=== PATIENT | male | born 1945 | race Caucasian/White ===

== ENCOUNTER 2016-04-16 07:35 | Inpatient (IN) | payer BC, OTHER ==
[2016-04-01 15:36] VITALS: BMI 37.0
[2016-04-16] VITALS (9 sets, daily range): BP systolic 92–138; BP diastolic 55–88; PULSE 104–111; TEMP 36.3–37.1; O2SAT 92–95; Ht 193 cm; Wt 141.5 kg
[~2016-04-16] VITALS: Ht 193 cm; Wt 141.5 kg
[~2016-04-16 07:35] MED LIST: ALLO100T PO; ASPI81TA28 PO; B-COTAB18 PO; CANA1TAB3 PO; CHOL1000 PO; CITA20TA4 PO; CLINDAMYCIN 600 MG/54 ML D5W IV SCH; CeleBREX 200 MG CAP PO SCH; GABA-113 PO; IBUP-103 PO; INDO-22 PO; INSU70IN2 SC; LSN/2025 PO; METF1TAB53 PO; MULT-190 PO; NORT25CA PO; OMEG10007 PO; PREGABALIN 75 MG CAP PO SCH; SIMV20TA2 PO
[2016-04-16] MEDS ORDERED: MIDAZOLAM HCL 1 MG/ML 2ML VIAL ONE (08:13)
[2016-04-16] MEDS ORDERED: FENTANYL CITRATE INJ 50 MCG/1 ML 2 ML VIAL ONE ×2 (08:13→08:14)
[2016-04-16] MEDS ORDERED: LIDOCAINE HCL 2% 2 ML VIAL (20MG/ML) ONE ×2 (08:13→08:52)
[2016-04-16] MEDS ORDERED: PROPOFOL IV EMULSION 10 MG/ML 20 ML VIAL IV ONE (08:13)
[2016-04-16] MEDS ORDERED: ONDANSETRON INJ 2 MG/ML 2 ML VIAL IV PRN ×2 (08:30→12:00)
[2016-04-16] MEDS ORDERED: EpHEDrine SULFATE INJ 50 MG/ML AMP IV PRN (08:30)
[2016-04-16] MEDS ORDERED: ATROPINE SULFATE 0.1 MG/ML 5ML SYR IV PRN (08:30)
[2016-04-16] MEDS ORDERED: MoRPHine SULFATE 10 MG/ML CARP/VIAL IV PRN (08:30)
[2016-04-16] MEDS: LACTATED RINGER'S 1000ML 1,000 ML IV SCH ×3 (08:55→13:05)
--- NOTE | 2016-04-16 09:02 | History and Physical ---
History & Physical Date Apr 16, 2016. Chief Complaint LBP, kye leg pain, L foot drop History of Present Illness The patient is a 70 year old male with complaints of above that have been long standing and progressive. He has failed to see improvement with PT or ESIs and weakness of ankle has developed. His MRI shows stenosis greatest at L3-4 and 4- 5, moderate at L5-S1 with a degen scoliosis, and multilevel DDD/facet djd. no incontinence Past Medical/Surgical History PVD diabetes type 2 gout hi chol hypothyroid T&A stress echo wnl 2013 stress test 2017 without ischemia Additional History Hepatic Disease: No Endocrine Disorder: No Kidney Disease: No Hypertension: No Heart Disease: No Bleeding Tendencies: No Infectious Diseases: No Allergies Coded Allergies: Penicillins (Verified Allergy, Unknown, "PATIENT PASSED OUT" OCCURED CHILD, 04/16/16) Home Medications Scheduled Allopurinol (Zyloprim), 100 MG PO QPM Aspirin (Aspirin Ec), 81 MG PO QAM B-Complex Vitamins (Vitamin B Complex), 1 TAB PO QPM Canagliflozin (Invokana), 300 MG PO QAM Cholecalciferol (Vitamin D3), 0.5 TAB PO QAM Citalopram Hydrobromide (Citalopram Hydrobromide), 1 TAB PO QAM Fish Oil ([place]-3), 1 CAP PO QAM Gabapentin (Neurontin), 300 MG PO QAM Gabapentin (Neurontin), 600 MG PO HS Hctz/Lisinopril (Lisinopril/Hctz 20/25 Mg), 1 TAB PO QPM Insulin Isophan/Regular (Novolin 70/30), 56 UNITS SC QAM Insulin Isophan/Regular (Novolin 70/30), 60 UNITS SC QPM Metformin Hcl (Glucophage Ext Rel), 1,000 MG PO BID Nortriptyline (Pamelor), 25 MG PO HS Ocuvite Preservision (Ocuvite Preservision), 1 TAB PO BID Simvastatin (Zocor), 20 MG PO QPM Scheduled PRN Ibuprofen Tab (Advil), 400 MG PO Q6 PRN for Pain Indomethacin (Indocin), 25 MG PO UD PRN for PRN Physical Examination Skin: warm/dry Eyes: normal inspection ENT: normal ENT inspection Head: normocephalic, atraumatic Neck: supple, trachea midline Respiratory/Chest: lungs clear, no respiratory distress Cardiovascular: regular rate, rhythm Back: normal inspection Extremities: normal inspection, normal range of motion Neurologic/Psych: normal reflexes, oriented x 3 Addiitonal Comments: L ankle foot drop Diagnosis spinal stenosis/DDD Plan of Treatment L2-S1 decompression/fusion
[2016-04-16] MEDS ORDERED: OXYC-57 PO (09:24)
--- NOTE | 2016-04-16 09:26 | Discharge Instructions ---
Discharge Instructions Admission Reason for Admission: Lumbar Spinal Stenosis Discharge Discharge Diagnosis / Problem: Lumbar Stenosis Discharge Goals Goal(s): Decrease discomfort, Improve function, Increase independence Activity Recommendations Activity Limitations: as noted below Lifting Limitations: no more than 5 pounds Exercise/Sports Limitations: until after follow-up appointment May Resume Sexual Activity: after follow-up appointment Shower/Bathe: may shower/bathe in 3 days . Current Hospital Diet ACTIVITY RECOMMENDATIONS: SELF CARE INSTRUCTIONS AFTER THORACIC/LUMBAR FUSIONS 1. You may walk to your tolerance. It is good exercise for your legs and back. Expect some back and intermittent leg aches and pains. 2. You may perform "counter-top" level activities (make a sandwich, boogie with a project, etc.). 3. No bending or lifting of more than 10 pounds or back twisting of any nature (roll like a log when turning in bed). 4. You may ride in a car for 20-30 minutes at a time. No driving until after your first visit with your doctor. 5. Frequent changes of position and restricting sitting to 30 minutes at a time will help limit the amount of back spasms and stiffness you may experience. 6. You may discontinue the use of ambulatory aids (cane, crutches, etc.) once your strength and confidence allow. 7. You may product support engineer the shower and let water strike your incision when you arrive home at least once daily. Do not take a tub bath, sit in a hot tub or go into a swimming pool until after your first recheck in the office. SPECIAL CARE INSTRUCTIONS: VERY IMPORTANT TO READ AND REVIEW A. Your surgical incision has been closed with a cosmetic suture under the skin that will dissolve in about 6 weeks. In 14 days, you can use a pair of clean scissors and cut the suture that is left outside of the skin at the ends of your incision. 1. The small skin tapes can be removed 7 days after surgery if they have not fallen off by that point. 2. You may keep the wound open to air as much as possible to promote healing after post-op day number 5 unless told otherwise by your doctor. 3. If you think the wound looks like it is becoming infected (redness or worsening drainage) and/or you are experiencing fever, chill or worsening back pain and muscle spasms, contact the office so that we may evaluate you as soon as possible. B. Complications are uncommon, but please contact us if you have any signs or symptoms of: 1. wound infection (fever higher than 102.5 degrees F, redness, separation of wound, drainage, or increasing pain from the incision) 2. blood clots in legs (pain, swelling, redness and warmth in legs) 3. urinary tract infection (fever higher than 102.5 degrees F, burning upon urination or increased frequency of urination) 4. nerve problems (inability to walk on your toes or heels, numbness, loss of bowel or bladder control) 5. any other symptoms that concern you C. Please call the office at if you have any concerns or questions about your operation or recovery. D. No smoking! Smoking drastically decreases the chance of a solid fusion. E. Do not take any anti-inflammatory medications (Indocin, Advil, Motrin, Aspirin, Naprosyn, etc.) as these may inhibit the chance of a solid fusion. Tylenol is okay to take for pain. MANAGING PAIN AFTER SPINAL SURGERY 1. Narcotic medication is intended for short-term use and will be provided for surgical pain. Surgical pain usually lasts for a period of 4-6 weeks. Narcotic medication includes Percocet, Vicodin, Darvocet, Tylenol #3 or Lortab. 2. Longer-term pain is more appropriately treated with non-narcotic medication such as Tylenol ES. 3. Muscle spasm is not appropriately treated with narcotics. Muscle relaxers such as Soma, Flexeril or Skelaxin can be used along with Tylenol ES. 4. Remember that we all live with some "aches and pains". This is not unusual or uncommon after an injury or as we get older. a. Back pain is expected and may include muscle spasms for 4 to 6 weeks after surgery. The pain should gradually improve. If the pain worsens for no apparent reason, please contact the office. b. Intermittent leg pain may also be experienced and should not be concerned about unless it worsens for no apparent reason. If so, please contact the office. 5. We will provide appropriate medication within the normal guidelines of their prescribed use. We will also be very cautious and aware of potential abuse and extended duration of patients' medication needs. a. Pain medications are for your comfort and to assist with sleep and rest so that the tissue can heal. They are not provided in order to return to normal activity and should not be used through the day. To do so or worsening pain at night can result from ongoing tissue damage and development of tolerance to the prescribed medicine. 6. Please allow 2-3 days to process refills. Prescriptions will not be mailed but must be picked up at the office. FOLLOW UP VISIT: Keep your scheduled follow-up appointment. Any questions, please call the office at . Patient's current hospital diet: Discharge Diet Recommended Diet: Regular Diet Pending Studies Studies pending at discharge: no Medical Emergencies . Who to Call and When: Medical Emergencies: If at any time you feel your situation is an emergency, please call 911 immediately. . Non-Emergent Contact Non-Emergency issues call your: Surgeon Call Non-Emergent contact if: temperature is above 101, your pain is not controlled, your pain is worsening, your pain is unusual for you, your pain is concerning you, wound has increased drainage, wound has increased redness, wound has increased pain, you have any medication questions . "Provider Documentation" section prepared by Darrell Bourgeois. VTE Core Measure Inpt VTE Proph given/why not?: Grace Dykes
[2016-04-16] MEDS ORDERED: PHENYLEPHRINE HCL INJ 10 MG/ML VIAL ONE (10:38)
[2016-04-16] MEDS ORDERED: EpHEDrine SULFATE 50MG/5ML SYR ONE (10:42)
[2016-04-16] MEDS ORDERED: PHENYLEPHRINE 100MCG/ML 5ML SYR ONE ×2 (10:42→12:15)
[2016-04-16] MEDS ORDERED: BUPIVACAINE/EPINEPHRINE 0.5% MPF 1:200,000 30 ML VIAL INJ ONE (10:44)
[2016-04-16] MEDS ORDERED: THROMBIN 5000 UNITS KIT TOP ONE (10:44)
[2016-04-16] MEDS ORDERED: THROMBIN FOR SOLN 20000 UNIT KIT TOP ONE (10:44)
[2016-04-16] MEDS ORDERED: BACITRACIN 50000 UNIT VIAL IR ONE (10:44)
[2016-04-16] MEDS ORDERED: ROCURONIUM BROMIDE 10 MG/ML 5 ML VIAL ONE (11:00)
[2016-04-16] MEDS ORDERED: VASOPRESSIN 20 UNIT/ML VIAL ONE (11:00)
[2016-04-16] MEDS ORDERED: FLOSEAL HEMOSTATIC MATRIX 10ML TOP ONE (11:43)
[2016-04-16] MEDS ORDERED: SODIUM CHLORIDE 0.9% 1000ML 1,000 ML IV SCH (11:55)
--- NOTE | 2016-04-16 11:55 | [facility] Post Operative Brief Note ---
Immediate Operative Summary Operative Date Apr 16, 2016. Pre-Operative Diagnosis Spinal stenosis, degenerative disc disease Post-Operative Diagnosis Same as pre-operative diagnosis Procedure(s) Performed L2-S1 Decompression, Posterior Spinal Fusion, Instrumentation; Infuse; Application of Arteriocyte Surgeon Dr. Petros Todd Continuous Improvement Coach Surgeon(s) Darrell Bourgeois PA-C Estimated Blood Loss 600ml Findings dict Specimens None per surgeon
[2016-04-16] MEDS ORDERED: NALOXONE HCL 0.4 MG/1 ML VIAL/CARP IV PRN ×2 (12:00)
[2016-04-16] MEDS ORDERED: LORAZEPAM 0.5 MG TAB PO PRN (12:00)
[2016-04-16] MEDS ORDERED: PROMETHAZINE HCL INJ 12.5 MG in SODIUM CHLORIDE 0.9% 50ML 50 ML IV PRN (12:00)
[2016-04-16] MEDS ORDERED: FAMOTIDINE 20 MG TAB PO PRN (12:00)
[2016-04-16] MEDS ORDERED: ACETAMINOPHEN IV 100 ML IV PRN (12:00)
[2016-04-16] MEDS ORDERED: MAGNESIUM HYDROXIDE SUSP 30 ML UDC PO PRN (12:00)
[2016-04-16] MEDS ORDERED: BISACODYL 10 MG SUPP PR PRN (12:00)
[2016-04-16] MEDS ORDERED: ALUMINUM/MAGNESIUM SUSP 30 ML UDC PO PRN (12:00)
[2016-04-16] MEDS ORDERED: LORAZEPAM INJ 0.5 MG in SYRINGE 0.75 ML IV PRN (12:00)
[2016-04-16] MEDS ORDERED: METOCLOPRAMIDE HCL INJ 5 MG/ML 2 ML VIAL IV PRN (12:00)
[2016-04-16] MEDS ORDERED: SOD PHOSPHATE/SOD BIPHOSPHATE ENEMA 132 ML BTL PR PRN (12:00)
[2016-04-16] MEDS ORDERED: hydrOXYzine HCL 25 MG TAB PO PRN (12:00)
--- NOTE | 2016-04-16 12:09 | DIAGNOSTIC IMAGING REPORT ---
INTRAOPERATIVE RADIOGRAPHS CLINICAL HISTORY: L2-S1 spinal fusion. Fluoroscopy time: 17 seconds. FINDINGS: 4 spot fluoroscopic views of the lumbar spine are presented. There are changes from laminectomy and posterior fusion seen from L2 to S1. Interpedicular screws are present at all levels. The orthopedic hardware appears intact. IMPRESSION: Intraoperative images from L2 -S1 spinal fusion as above. Electronically signed by: Marcus Chambers M.D. 04/16/2016 12:08 PM Dictated Date/Time: 04/16/2016 12:07 PM
[2016-04-16] MEDS ORDERED: NovoLIN-R INSULIN PER UNIT CHARGE ONE (12:20)
[2016-04-16] MEDS ORDERED: INSULIN HUMAN REGULAR PER UNIT 5 UNITS in SYRINGE 0 ML IV STA (12:32)
[2016-04-16] MEDS: FENTANYL CITRATE INJ 50 MCG/1 ML 2 ML VIAL IV PRN ×4 (13:05→13:20)
[2016-04-16] MEDS ORDERED: HYDROmorphone HCL 0.5MG/ML 50 ML CASSETTE ONE (13:24)
[2016-04-16 13:25] LABS: HEMATOCRIT 37.2 % (42-52)
--- NOTE | 2016-04-16 14:38 | Anesthesiology Progress Note ---
Anesthesia Post Op Note Date & Time Apr 16, 2016 at 14:38 Vital Signs Pain Intensity: 3 Vital Signs Past 12 Hours Date Time Temp Pulse Resp B/P Pulse Ox O2 Delivery O2 Flow Rate FiO2 04/16/16 14:20 36.6 105 18 96/64 92 Nasal Cannula 4 04/16/16 14:10 103 18 92/55 92 Nasal Cannula 4 04/16/16 14:00 103 18 105/60 92 Nasal Cannula 4 04/16/16 13:50 104 18 105/61 94 Nasal Cannula 4 04/16/16 13:40 101 18 101/59 96 Nasal Cannula 4 04/16/16 13:30 103 18 118/59 96 Nasal Cannula 4 04/16/16 13:20 102 18 92/56 93 Nasal Cannula 4 04/16/16 13:10 100 18 111/55 93 Nasal Cannula 4 04/16/16 13:00 101 18 86/56 92 Nasal Cannula 4 04/16/16 12:50 101 18 81/59 92 Nasal Cannula 4 04/16/16 12:40 100 16 89/55 96 Nasal Cannula 4 04/16/16 12:30 105 16 77/45 98 Mask 10 04/16/16 12:20 104 16 101/62 100 Mask 10 04/16/16 12:13 36.8 108 16 81/55 98 Mask 10 04/16/16 08:25 37.1 108 18 100/66 95 Room Air Notes Mental Status: alert / awake / arousable, participated in evaluation Pt Amnestic to Procedure: Yes Nausea / Vomiting: adequately controlled Pain: adequately controlled Airway Patency, RR, SpO2: stable & adequate BP & HR: stable & adequate Hydration State: stable & adequate Anesthetic Complications: no major complications apparent
[2016-04-16] MEDS: HYDROmorphone HCL 0.5MG/ML 50 ML CASSETTE IV PRN ×2 (15:19→22:55)
--- NOTE | 2016-04-16 16:14 | OPERATIVE REPORT ---
DATE OF OPERATION: 04/16/2016 PREOPERATIVE DIAGNOSES: 1. Spinal stenosis. 2. Lumbar facet arthrosis, degenerative disc disease, degenerative scoliosis. POSTOPERATIVE DIAGNOSES: Same. PROCEDURES: 1. L3, L4 and L5 laminectomies with bilateral medial facetectomies and foraminotomies. 2. Segmental pedicle screw instrumentation -- bilateral L2, L3, left L4, bilateral L5 and S1 with K2M [place] pedicle screws. 3. Posterolateral fusion L2-S1 -- bilateral with Infuse BMP on a collagen sponge, tricalcium phosphate, local bone, bone putty bone marrow aspirate, bone graft zoning administrator. 4. Right iliac crest bone marrow aspiration, stem cell concentrations with Arteriocyte system. SURGEON: Dr. Todd. SCREEN TACKER: Darrell Bourgeois PA-C. Please note he participated in all portions of the procedure and was critical for performance of procedure, participated in positioning, prepping, draping, retraction and wound closure. ANESTHESIA: General endotracheal anesthesia. COMPLICATIONS: None. ESTIMATED BLOOD LOSS: Per anesthesia record. DESCRIPTION OF PROCEDURE: After identification of patient and operative level, he was brought to the OR where he underwent induction of general anesthesia. He was then positioned prone on Surinder OR table. All bony prominences were well padded. Care was taken to avoid pressure on the periorbital area. Lumbosacral area was sterilely prepped and draped in usual fashion. Antibiotics were administered. Time-out was performed. Level was confirmed and skin incision was made from spinous process of L1 to the sacrum after infiltration with Marcaine. I exposed the posterior elements out to the transverse process from L2 to the sacral ala, placed Gelpi retractors and confirmed level with fluoroscopy. I marked the operative levels and then did laminectomies with midline decompression of L3, L4 and L5 and removal of ligamentum flavum at the intervening levels. Using an osteotome to remove the medial facets at L3-L4, L4-L5 and L5-S1, I completed decompression with Kerrisons. Wide foraminotomies were necessary at multiple levels due to foraminal stenosis. I palpated the nerve roots were free from L3-S1 bilaterally with a [place] elevator. I then applied FloSeal as necessary for hemostasis, bone wax components. I placed pedicle screws bilaterally at L2, L3, on the left at L4, bilaterally at L5 and S1 with K2M [place] pedicle screws. I checked screw lengths, trajectory and position with fluoroscopy. The right L4 pedicle screw had breached the medial and inferior wall and I removed this so as not to irritate the nerve root. I then lowered the Jaspal frame to restore lordosis, applied rods and end caps final tightening as well as a cross link which final tightened. I aspirated bone marrow from the right iliac crest via separate stab incision with a DNage needle concentration with Arteriocyte system, added to bone graft zoning administrator, mixed with local bone. I then decorticated the transverse process from L2 to the sacral ala bilaterally with a high speed bur as well as the facet joints from L2 to the sacrum bilaterally. I then packed the lateral gutters and facets with bone graft mixture as above bilaterally. I did irrigate prior to bone grafting. I then closed in layered fashion over ADDISON drain. All sponge and needle counts were correct at the end of the case. I attest to the content of the Intraoperative Record and any orders documented therein. Any exceptio ns are noted below.
[2016-04-16] MEDS: SODIUM CHLORIDE 0.9% 1000ML 1,000 ML IV SCH (17:02)
[2016-04-16] MEDS ORDERED: DEXTROSE 50% 50 ML SYR IV PRN (17:15)
[2016-04-16] MEDS ORDERED: GLUCAGON FOR INJ 1 MG VIAL SQ PRN (17:15)
[2016-04-16] MEDS ORDERED: GLUCOSE 40% GEL 15 GM TUBE PO PRN (17:15)
[2016-04-16] MEDS ORDERED: GLUCOSE 10 TABS/TUBE PO PRN (17:15)
[2016-04-16] MEDS: CLINDAMYCIN IV 600 MG in DEXTROSE 5% ADD-VANTAGE 50ML 50 ML IV SCH (17:26)
[2016-04-16] MEDS ORDERED: PHARMACY GLYCEMIC MGMT CONSULT PRN (17:28)
--- NOTE | 2016-04-16 17:33 | Medical Consult ---
Consultation Date of Consultation: Apr 16, 2016. Attending Physician: Petros Todd M.D. Reason for Consultation: Postop Medical Management History of Present Illness Patient seen and examined. 70 year old male with PMHx of DM2, Hypothyroidism, HTN, HLD, Gout, PAD and other problems listed below is seen in consultation for postop medical management. Patient reports he feels uncomfortable and restless from lying in bed. Otherwise he said pain is well controlled with CASE MANAGER SPECIALIST, he denies fevers, chills, URI symptoms, chest pain, SOB, nausea, vomiting, diarrhea , dysuria, calf pain and edema. Last BM this morning. Denies history of VTE. Intraoperatively patient became hypotensive, d/t increased blood loss throughout the procedure, per nursing staff EBL for today is approximately 1L. Patient received IVFs and BPs improved, he was admitted to PCU following procedure for close monitoring. VS are currently stable Past Medical/Surgical History Medical Problems: (1) Depression Status: Chronic (2) DM2 (diabetes mellitus, type 2) Status: Chronic (3) Gout Status: Chronic (4) HLD (hyperlipidemia) Status: Chronic (5) HTN (hypertension) Status: Chronic (6) Hypothyroid Status: Chronic (7) PAD (peripheral artery disease) Status: Chronic Surgical Problems: (1) History of back surgery Status: Chronic Social History Smoking Status: Former Smoker Alcohol Use: none Housing Status: lives with family Occupation Status: retired Allergies Coded Allergies: Penicillins (Verified Allergy, Unknown, "PATIENT PASSED OUT" OCCURED CHILD, 04/16/16) Current Inpatient Medications Current Inpatient Medications Medications (Trade) Dose Ordered Sig/Jax Route Start Time Stop Time Status Last Admin Dose Admin Lactated Ringer's 1,000 ml @ 15 mls/hr Q24H IV 04/16/16 06:00 04/17/16 05:59 04/16/16 13:05 15 MLS/HR Clindamycin Phosphate (Cleocin 600mg/ 54ml D5W) 54 ml @ 100 mls/hr PREOP IV 04/16/16 06:00 04/16/16 18:00 04/16/16 09:29 100 MLS/HR Allopurinol (Zyloprim Tab) 100 mg QPM PO 04/16/16 21:00 05/16/16 20:59 Aspirin (Ecotrin Tab) 81 mg QAM PO 04/17/16 09:00 05/17/16 08:59 Citalopram Hydrobromide (celeXA TAB) 20 mg QAM PO 04/17/16 09:00 05/17/16 08:59 Gabapentin (Neurontin Cap) 300 mg QAM PO 04/17/16 09:00 05/17/16 08:59 Gabapentin (Neurontin Cap) 600 mg HS PO 04/16/16 21:00 05/16/16 20:59 HCTZ/Lisinopril (Prinzide 20-25MG Tab) 1 tab QPM PO 04/16/16 21:00 05/16/16 20:59 Nortriptyline HCl 25 mg 25 mg HS PO 04/16/16 21:00 05/16/16 20:59 Clindamycin Phosphate 600 mg/ Dextrose 54 ml @ 100 mls/hr Q8H IV 04/16/16 18:00 04/17/16 02:33 Promethazine HCl/ Sodium Chloride (Phenergan Inj/ Nss 50ml) 50.5 ml @ 202 mls/hr Q6H PRN IV 04/16/16 12:00 05/16/16 11:59 Ondansetron HCl (Zofran Inj) 4 mg Q6H PRN IV 04/16/16 12:00 05/16/16 11:59 Metoclopramide HCl (Reglan Inj) 10 mg Q6H PRN IV 04/16/16 12:00 05/16/16 11:59 Lorazepam 0.5 mg 0.5 mg Q8H PRN PO 04/16/16 12:00 05/16/16 11:59 Lorazepam 0.5 mg/ Syringe 1 ml @ 1 mls/min Q8H PRN IV 04/16/16 12:00 05/16/16 11:59 Sodium Chloride (Nss 1000ml) 1,000 ml @ 75 mls/hr [id number] IV 04/16/16 11:55 05/16/16 11:54 04/16/16 17:02 75 MLS/HR Polyethylene (Miralax Powder Packet) 17 gm Q6 PO 04/18/16 06:00 05/18/16 05:59 Bisacodyl (Dulcolax Supp) 10 mg DAILY PRN [place] 04/16/16 12:00 05/16/16 11:59 Magnesium Hydroxide (Milk Of Magnesia Susp) 30 ml DAILY PRN PO 04/16/16 12:00 05/16/16 11:59 Hydromorphone HCl (Dilaudid Inj) 0.5 mg Q3H PRN IV 04/17/16 06:00 05/01/16 05:59 Oxycodone HCl 5-10mg prn moderate to sev... Q4H PRN PO 04/17/16 06:00 05/01/16 05:59 Acetaminophen (Ofirmev Iv) 100 ml @ 400 mls/hr Q8H PRN IV 04/16/16 12:00 05/16/16 11:59 Naloxone HCl (Narcan Inj) 0.1 mg Q5M PRN IV 04/16/16 12:00 05/16/16 11:59 Senna/Docusate Sodium (Senokot S Tab) 2 tab HS PO 04/16/16 21:00 05/16/16 20:59 Sodium Biphosphate/ Sodium Phosphate (Fleet Enema) 132 ml ONE PRN [place] 04/16/16 12:00 05/16/16 11:59 Hydroxyzine HCl (Vistaril Tab) 25 mg Q8H PRN PO 04/16/16 12:00 05/16/16 11:59 Al Hydroxide/Mg Hydroxide (Maalox Susp) 30 ml Q6H PRN PO 04/16/16 12:00 05/16/16 11:59 Famotidine (Pepcid Tab) 20 mg Q12 PRN PO 04/16/16 12:00 05/16/16 11:59 Miscellaneous Information (Discontinue CASE MANAGER SPECIALIST) 1 ea ONE ONCE N/A 04/17/16 06:00 04/17/16 06:01 Naloxone HCl (Narcan Inj) 0.1 mg Q5M PRN IV 04/16/16 12:00 04/17/16 06:00 Hydromorphone HCl 25 mg 25 mg PRN PRN IV 04/16/16 12:00 04/17/16 06:00 04/16/16 15:19 25 MG Sodium Chloride (Nss 1000ml) 1,000 ml @ 15 mls/hr Q24H IV 04/16/16 11:55 04/17/16 06:00 Hydromorphone HCl (Dilaudid Inj) 1 mg Q3H PRN IV 04/17/16 06:00 05/01/16 05:59 Review of Systems See above for pertinent positives & negatives. A total of 10 systems reviewed and were otherwise negative. Physical Exam Date Time Temp Pulse Resp B/P Pulse Ox O2 Delivery O2 Flow Rate FiO2 04/16/16 16:58 36.3 106 18 116/72 93 Nasal Cannula 4.0 04/16/16 16:31 36.3 104 18 96/55 94 Nasal Cannula 4.0 04/16/16 16:15 94 Nasal Cannula 4.0 04/16/16 16:10 36.5 108 16 138/88 94 Nasal Cannula 4.0 04/16/16 15:40 36.6 108 18 126/65 96 Nasal Cannula 4 04/16/16 15:30 36.6 102 18 115/58 96 Nasal Cannula 4 04/16/16 15:20 36.6 102 18 115/58 94 Nasal Cannula 4 04/16/16 15:10 36.6 102 18 101/88 94 Nasal Cannula 4 04/16/16 15:00 36.6 102 18 103/60 92 Nasal Cannula 4 04/16/16 14:50 36.6 103 18 102/65 92 Nasal Cannula 4 04/16/16 14:40 36.6 102 18 102/59 95 Nasal Cannula 4 04/16/16 14:30 36.6 102 18 103/54 96 Nasal Cannula 4 04/16/16 14:20 36.6 105 18 96/64 92 Nasal Cannula 4 04/16/16 14:10 103 18 92/55 92 Nasal Cannula 4 04/16/16 14:00 103 18 105/60 92 Nasal Cannula 4 04/16/16 13:50 104 18 105/61 94 Nasal Cannula 4 04/16/16 13:40 101 18 101/59 96 Nasal Cannula 4 04/16/16 13:30 103 18 118/59 96 Nasal Cannula 4 04/16/16 13:20 102 18 92/56 93 Nasal Cannula 4 04/16/16 13:10 100 18 111/55 93 Nasal Cannula 4 04/16/16 13:00 101 18 86/56 92 Nasal Cannula 4 04/16/16 12:50 101 18 81/59 92 Nasal Cannula 4 1/24/17 12:40 100 16 89/55 96 Nasal Cannula 4 04/16/16 12:30 105 16 77/45 98 Mask 10 04/16/16 12:20 104 16 101/62 100 Mask 10 04/16/16 12:13 36.8 108 16 81/55 98 Mask 10 04/16/16 08:25 37.1 108 18 100/66 95 Room Air General Appearance: + pertinent finding (WD/WN 70 year old male lying in bed in NAD with family at bedside ) Head: normocephalic, atraumatic Eyes: PERRL, EOMI, sclerae normal ENT: hearing grossly normal, pharynx normal Neck: supple, no JVD Respiratory/Chest: chest non-tender, lungs clear, normal breath sounds, no respiratory distress, no accessory muscle use Cardiovascular: regular rate, rhythm, no edema, no gallop, no JVD, no murmur, normal peripheral pulses Abdomen/GI: normal bowel sounds, non tender, soft Genitourinary - Male: + pertinent finding (reyes cath with yellow urine ) Neurologic/Psych: alert, oriented x 3, + pertinent finding (no focal deficits noted on gross exam ) Skin: normal color, warm/dry, no rash Lymphatic: no adenopathy Laboratory Results Last 24 Hours Test 04/16/16 08:16 04/16/16 08:29 04/16/16 12:15 04/16/16 13:17 Bedside Glucose 208 mg/dl 263 mg/dl Hemoglobin 12.7 g/dL Hematocrit 37.2 % Test 04/16/16 13:41 04/16/16 16:11 Bedside Glucose 247 mg/dl 227 mg/dl Assessment & Plan L2-S1 DECOMPRESSION/FUSION -POD#[address] Mera -Management as per ortho to include- pain control, bowel regimen, DVT prophylaxis, PT/OT, incentive spirometry, wound care -EBL 1L -BPs running low likely secondary to acute blood loss, repeat H&H 12.7 -Gentle IVF hydration -follow H&H -CBC, PRP, Mg daily INTRAOPERATIVE ACCIDENTAL NEEDLE STICK -Patient made aware by this fiction writer, all questions answered and consent signed -consent signed and on chart -Patient requested that result be given to him directly from the [facility] and not from his PCP - supervising nurse made aware HTN -running low intraoperatively, improved now -monitor in tele -hold Lisinopril/HCTZ -gentle IVF hydration DM2 -A1c pending -Hold po diabetic agents -SSI coverage -BSG AC HS -Consistent carbohydrate diet -pharmacy consulted for glycemic control HYPOTHYROIDISM -per record, not on hormone replacement -check TSH PAD -resume aspirin when okay with ortho GOUT -continue Allopurinol DEPRESSION -continue Celexa DVT PROPHYLAXIS: per ortho CODE STATUS: FULL CODE DISPO:per ortho Patient seen in collaboration with Dr. Clements, and will be followed daily with Dr. Corbin Thank you for this consultation. We will follow the patient with you during their hospital stay. You can reach a member of the [facility] Hospitalist Team 14/10 via pager @ . Attending Addendum Pt was seen and examined. Agree with Sravanthi's PA exam, assessment and plan. 70 year old male with PMHx of DM2, Hypothyroidism, HTN, HLD, Gout, PAD, s/p L2-S1 decompression and fusion. [facility] hospitalist was consulted for postop medical management. Pt said that he feels ok. Denies any chest pain, palpitation , dizziness and SOB. General- obese, no acute distress Head- atraumatic Eyes- PERRL, EOMI ENT- oropharynx clear Neck- supple, no JVD Lungs- clear to auscultation and percussion Heart- regular rhythm A/p L2-S1 DECOMPRESSION/FUSION -POD#[address] Mera -Continue pain management as per ortho -Monitor H/H -PT/OT - Incentive spirometry HTN -monitor in tele -hold Lisinopril/HCTZ, will resume when BP improved -gentle IVF hydration Please refer to Sravanthi's PA documentation for others problems Thank you for the consult Orin Clements MD
--- NOTE | 2016-04-16 17:44 | Pharmacy Progress Note ---
Glycemic Control Intl Consult Date of Service Apr 16, 2016. Scope Glycemic Pharmacist consulted by Sravanthi House on 04/16/16 for glycemic control and to write orders per [facility] inpatient glycemic control protocol Objective Weight (Kilograms): 138.000 Accuchecks BSG (last 24hrs): Test 04/16/16 08:16 04/16/16 12:15 04/16/16 13:41 04/16/16 16:11 Bedside Glucose 208 mg/dl (70-99) 263 mg/dl (70-99) 247 mg/dl (70-99) 227 mg/dl (70-99) Recent Pertinent Medications Outpatient Anti-diabetic Regimen: * Invokana 300mg PO daily * Glucophage 1000mg PO BID * Novolin Mix 70/30 * 56 units SQ in the morning * 60 units SQ in the evening * A1c = unknown at time of consult The patient is currently receiving: * Basal insulin: none at time of consult * Correctional Insulin: NovoLog Correction per scale AC+HS Goal Range: Low 100 mg/dL - High 140 mg/dL Correction Factor: 30 mg/dL/unit * Prandial insulin: Per carb ratio of 1 unit per 10 grams CHO consumed * Oral Agents: none at time of consult Risk Factors for Insulin Resistance: * Infection: clindamycin perioperatively * IVF: NSS * Recent Surgery: POD #0 * Diet: T2DM Assessment & Plan ASSESSMENT: 04/16/16 * Mr. Blanton is a 70 y/o diabetic who uses basal and prandial insulin (as a mixed Novolin product) plus oral medications to manage his diabetes as an outpatient. * Last doses given 1-2 days prior to surgery - may help explain hyperglycemia perioperatively * 5 units of regular insulin IV given today around noontime * BSGs remain elevated above 200mg/dL * Will transition mixed insulin to Lantus/NovoLog for ease of titration * NovoLog parameters will be based off of both home doses as well as the patient 's weight * A1c is n/a at time of consult * on order for 1/25 AM PLAN FOR INPATIENT GLYCEMIC CONTROL: CHANGES IN BOLD * Begin Lantus 20 units SQ BID * half dose if BSG is less than 100mg/dL * Continue NovoLog AC and HS * Correction factor 18mg/dL/unit * Carb ratio: 1unit per 6g of CHO consumed * Goal range: 100-140mg/dL - keep BSGs lower to decrease risk of infection postoperatively * A1c - on order with AM labs * added to discharge instructions * Please note that the plan above was derived based on current level of insulin resistance and hospital stress. These recommendations are appropriate for inpatient admission only. Plan of care upon discharge will need to be reassessed to avoid potential outpatient hypo/hyperglycemia. Thank you.
[2016-04-16] MEDS: INSULIN ASPART 100 UNITS/ML 3 ML PEN SC SCH ×2 (18:45→21:20)
[2016-04-16] MEDS ORDERED: NURSING VERBAL MED ORDER ONE (19:30)
[2016-04-16] MEDS ORDERED: COUGH DROP (SUGAR FREE) LOZ 24 LOZ/1 BOX PO PRN (19:45)
[2016-04-16] MEDS ORDERED: LISINOPRIL/HCTZ 20/25MG TAB PO SCH (21:00)
[2016-04-16] MEDS: DOCUSATE SODIUM/SENNA 50/8.6MG TAB PO SCH (21:17)
[2016-04-16] MEDS: ALLOPURINOL 100 MG TAB PO SCH (21:17)
[2016-04-16] MEDS: NORTRIPTYLINE HCL 25 MG CAP PO SCH (21:17)
[2016-04-16] MEDS: GABAPENTIN 300 MG CAP PO SCH (21:17)
[2016-04-16] MEDS: INSULIN GLARGINE SOLOSTAR 100 UNITS/ML 3 ML PEN SC SCH (21:20)
[2016-04-17] VITALS (12 sets, daily range): BP systolic 108–143; BP diastolic 53–79; PULSE 110–119; TEMP 36.3–37.2; O2SAT 89–97
[2016-04-17] MEDS: SODIUM CHLORIDE 0.9% 1000ML 1,000 ML IV SCH (00:41)
[2016-04-17] MEDS: INSULIN ASPART 100 UNITS/ML 3 ML PEN SC SCH ×7 (00:42→22:13)
[2016-04-17] MEDS: CLINDAMYCIN IV 600 MG in DEXTROSE 5% ADD-VANTAGE 50ML 50 ML IV SCH (02:00)
[2016-04-17] MEDS ORDERED: HYDROmorphone INJ 1 MG/ML SYR IV PRN (06:00)
[2016-04-17] MEDS ORDERED: DC PCA ONE (06:00)
[2016-04-17 06:17] LABS: BASO % 0.2 %; BASO ABS # 0.03 K/uL (0-0.2); COMPLETE YES; EOS % 0.2 %; HEMATOCRIT 36.2 % (42-52); IG% 0.3 %; LYMPH % 14.1 %; LYMPH ABS # 1.72 K/uL (1.2-3.4); MEAN CELL VOLUME 94.3 fL (80-100); MEAN CORPUSCULAR HEMOGLOBIN 31.3 pg (25-34); MEAN CORPUSCULAR HGB CONC 33.1 g/dl (32-36); MEAN PLATELET VOLUME 9.5 fL (7.4-10.4); MONO % 10.2 %; PLATELET COUNT 186 K/uL (130-400); RED BLOOD COUNT 3.84 M/uL (4.7-6.1); WHITE BLOOD COUNT 12.24 K/uL (4.8-10.8)
[2016-04-17 06:34] LABS: ESTIMATED AVERAGE GLUCOSE 154 mg/dl; HA1C FLAG Normal (Normal)
[2016-04-17 06:46] LABS: BUN/CREATININE RATIO 25.5 (10-20); CALCIUM 8.4 mg/dl (8.5-10.1); CREATININE 0.88 mg/dl (0.60-1.40); POTASSIUM 4.1 mmol/L (3.5-5.1)
[2016-04-17 06:57] LABS: THYROID STIMULATING HORMONE 0.931 uIu/ml (0.300-4.500)
[2016-04-17] MEDS: ASPIRIN 81 MG ECTAB PO SCH (07:50)
[2016-04-17] MEDS: GABAPENTIN 300 MG CAP PO SCH ×2 (07:50→22:20)
[2016-04-17] MEDS: CITALOPRAM 20 MG TAB PO SCH (07:50)
[2016-04-17] MEDS: INSULIN GLARGINE SOLOSTAR 100 UNITS/ML 3 ML PEN SC SCH ×2 (07:53→22:13)
--- NOTE | 2016-04-17 07:57 | Clinical Documentation Query ---
GRACE Rosado : CLINICAL DOCUMENTATION QUERY Patient is a 70 year old male who underwent lumbar decompression and lumbosacral posterior fusion on 04/16. Preoperative diagnoses included "degenerative scoliosis". If appropriate, please consider explicit documentation outlining how the scoliosis was corrected and/or made the procedure more technically difficult. This directly impacts DRG assignment and can only be made clearer through definitive documentation. Thank you. In your clinical opinion is this patient being managed for: ( ) L2-S1 posterolateral fusion, correcting and made more technically difficult by scoliosis. ( ) Other explanation of clinical findings (Please Explain) ( ) Unable to determine (Please Define) ( ) Need to Discuss ( ) Not Agree The medical record reflects the following clinical findings, treatment, and risk factors. Clinical Indicators: As above Treatment: As above Risk Factors: n/a Please clarify and document your clinical opinion in the progress notes and discharge summary. Terms such as "probable", "suspected", "likely", "questionable", "possible", or "still to be ruled out" are acceptable. IF IN AGREEMENT, YOU MUST DOCUMENT ABOVE DIAGNOSTIC STATEMENT IN DAILY PROGRESS NOTES AND DISCHARGE SUMMARY. This document is not part of the patient's record. Thank You, Daren Alegre, RN [phone]
--- NOTE | 2016-04-17 10:18 | Anesthesiology Progress Note ---
Anesthesia Post Op Note Date & Time Apr 17, 2016 at 10:18 Vital Signs Pain Intensity: 0.0 Vital Signs Past 12 Hours Date Time Temp Pulse Resp B/P Pulse Ox O2 Delivery O2 Flow Rate FiO2 04/17/16 08:00 Nasal Cannula 2.0 04/17/16 08:00 36.9 117 18 136/79 94 2.0 04/17/16 04:23 Nasal Cannula 2.0 04/17/16 03:51 37.2 116 20 127/73 94 Nasal Cannula 2.0 04/17/16 00:48 Nasal Cannula 2.0 04/16/16 23:51 36.8 108 21 92/58 94 Nasal Cannula 2.0 Notes Mental Status: alert / awake / arousable, participated in evaluation Pt Amnestic to Procedure: Yes Nausea / Vomiting: adequately controlled Pain: adequately controlled Airway Patency, RR, SpO2: stable & adequate BP & HR: stable & adequate Hydration State: stable & adequate Anesthetic Complications: no major complications apparent
--- NOTE | 2016-04-17 10:46 | Orthopedic Progress Note ---
Orthopedic Progress Note Date of Service Apr 17, 2016. Subjective Post OP Day: 1 Reports: feeling well, pain controlled w PO medications, Denies: SOB, calf pain , chest pain, complaints, light headedness, nausea / vomiting, using MEMBERSHIP COUNSELOR Objective calves soft nontender, N/V intact, dressing C/D/I, A&O x3, hemovac drainage Date Time Temp Pulse Resp B/P Pulse Ox O2 Delivery O2 Flow Rate FiO2 04/17/16 08:00 Nasal Cannula 2.0 04/17/16 08:00 36.9 117 18 136/79 94 2.0 04/17/16 04:23 Nasal Cannula 2.0 04/17/16 03:51 37.2 116 20 127/73 94 Nasal Cannula 2.0 04/17/16 00:48 Nasal Cannula 2.0 04/16/16 23:51 36.8 108 21 92/58 94 Nasal Cannula 2.0 04/16/16 20:20 36.7 111 24 109/65 92 Nasal Cannula 2.0 04/16/16 20:00 92 Nasal Cannula 2.0 04/16/16 19:24 109 109/70 04/16/16 18:43 36.6 108 16 114/71 92 Room Air 04/16/16 16:58 36.3 106 18 116/72 93 Nasal Cannula 4.0 04/16/16 16:31 36.3 104 18 96/55 94 Nasal Cannula 4.0 04/16/16 16:15 94 Nasal Cannula 4.0 04/16/16 16:10 36.5 108 16 138/88 94 Nasal Cannula 4.0 04/16/16 15:40 36.6 108 18 126/65 96 Nasal Cannula 4 04/16/16 15:30 36.6 102 18 115/58 96 Nasal Cannula 4 04/16/16 15:20 36.6 102 18 115/58 94 Nasal Cannula 4 04/16/16 15:10 36.6 102 18 101/88 94 Nasal Cannula 4 04/16/16 15:00 36.6 102 18 103/60 92 Nasal Cannula 4 04/16/16 14:50 36.6 103 18 102/65 92 Nasal Cannula 4 04/16/16 14:40 36.6 102 18 102/59 95 Nasal Cannula 4 04/16/16 14:30 36.6 102 18 103/54 96 Nasal Cannula 4 04/16/16 14:20 36.6 105 18 96/64 92 Nasal Cannula 4 04/16/16 14:10 103 18 92/55 92 Nasal Cannula 4 04/16/16 14:00 103 18 105/60 92 Nasal Cannula 4 04/16/16 13:50 104 18 105/61 94 Nasal Cannula 4 04/16/16 13:40 101 18 101/59 96 Nasal Cannula 4 04/16/16 13:30 103 18 118/59 96 Nasal Cannula 4 04/16/16 13:20 102 18 92/56 93 Nasal Cannula 4 04/16/16 13:10 100 18 111/55 93 Nasal Cannula 4 04/16/16 13:00 101 18 86/56 92 Nasal Cannula 4 04/16/16 12:50 101 18 81/59 92 Nasal Cannula 4 04/16/16 12:40 100 16 89/55 96 Nasal Cannula 4 04/16/16 12:30 105 16 77/45 98 Mask 10 04/16/16 12:20 104 16 101/62 100 Mask 10 04/16/16 12:13 36.8 108 16 81/55 98 Mask 10 Laboratory Results 24 Hours: Test 04/16/16 13:17 04/17/16 05:51 Hematocrit 37.2 % 36.2 % Hemoglobin 12.7 g/dL 12.0 g/dL White Blood Count 12.24 K/uL Red Blood Count 3.84 M/uL Mean Corpuscular Volume 94.3 fL Mean Corpuscular Hemoglobin 31.3 pg Mean Corpuscular Hemoglobin Concent 33.1 g/dl Platelet Count 186 K/uL Mean Platelet Volume 9.5 fL Neutrophils (%) (Auto) 75.0 % Lymphocytes (%) (Auto) 14.1 % Monocytes (%) (Auto) 10.2 % Eosinophils (%) (Auto) 0.2 % Basophils (%) (Auto) 0.2 % Neutrophils # (Auto) 9.17 K/uL Lymphocytes # (Auto) 1.72 K/uL Monocytes # (Auto) 1.25 K/uL Eosinophils # (Auto) 0.03 K/uL Basophils # (Auto) 0.03 K/uL Assessment & Plan Assessment: denies complaints...feels well. BP improved ON. Hct acceptable Plan: transfer to floor if ok with medicine. PT/scds/continue drain Discharge Planning Discharge Planning: home Pain Management: Oxy IR DVT Prophylaxis: SCDs Therapy: Physical Therapy, Occupational Therapy
--- NOTE | 2016-04-17 10:47 | Orthopedic Progress Note ---
Orthopedic Progress Note Date of Service Apr 17, 2016. Subjective Reports: feeling well, pain controlled w PO medications, Denies: SOB, calf pain , chest pain, complaints, light headedness, nausea / vomiting Additional Notes: Seen by Dr. Todd: Patient is doing fine with no issues, he remains medically stable Objective calves soft nontender, N/V intact, dressing C/D/I, A&O x3, toes mobile, hemovac drainage Date Time Temp Pulse Resp B/P Pulse Ox O2 Delivery O2 Flow Rate FiO2 04/17/16 08:00 Nasal Cannula 2.0 04/17/16 08:00 36.9 117 18 136/79 94 2.0 04/17/16 04:23 Nasal Cannula 2.0 04/17/16 03:51 37.2 116 20 127/73 94 Nasal Cannula 2.0 04/17/16 00:48 Nasal Cannula 2.0 04/16/16 23:51 36.8 108 21 92/58 94 Nasal Cannula 2.0 04/16/16 20:20 36.7 111 24 109/65 92 Nasal Cannula 2.0 04/16/16 20:00 92 Nasal Cannula 2.0 04/16/16 19:24 109 109/70 04/16/16 18:43 36.6 108 16 114/71 92 Room Air 04/16/16 16:58 36.3 106 18 116/72 93 Nasal Cannula 4.0 04/16/16 16:31 36.3 104 18 96/55 94 Nasal Cannula 4.0 04/16/16 16:15 94 Nasal Cannula 4.0 04/16/16 16:10 36.5 108 16 138/88 94 Nasal Cannula 4.0 04/16/16 15:40 36.6 108 18 126/65 96 Nasal Cannula 4 04/16/16 15:30 36.6 102 18 115/58 96 Nasal Cannula 4 04/16/16 15:20 36.6 102 18 115/58 94 Nasal Cannula 4 04/16/16 15:10 36.6 102 18 101/88 94 Nasal Cannula 4 04/16/16 15:00 36.6 102 18 103/60 92 Nasal Cannula 4 04/16/16 14:50 36.6 103 18 102/65 92 Nasal Cannula 4 04/16/16 14:40 36.6 102 18 102/59 95 Nasal Cannula 4 04/16/16 14:30 36.6 102 18 103/54 96 Nasal Cannula 4 04/16/16 14:20 36.6 105 18 96/64 92 Nasal Cannula 4 04/16/16 14:10 103 18 92/55 92 Nasal Cannula 4 04/16/16 14:00 103 18 105/60 92 Nasal Cannula 4 04/16/16 13:50 104 18 105/61 94 Nasal Cannula 4 04/16/16 13:40 101 18 101/59 96 Nasal Cannula 4 04/16/16 13:30 103 18 118/59 96 Nasal Cannula 4 04/16/16 13:20 102 18 92/56 93 Nasal Cannula 4 04/16/16 13:10 100 18 111/55 93 Nasal Cannula 4 04/16/16 13:00 101 18 86/56 92 Nasal Cannula 4 04/16/16 12:50 101 18 81/59 92 Nasal Cannula 4 04/16/16 12:40 100 16 89/55 96 Nasal Cannula 4 04/16/16 12:30 105 16 77/45 98 Mask 10 04/16/16 12:20 104 16 101/62 100 Mask 10 04/16/16 12:13 36.8 108 16 81/55 98 Mask 10 Laboratory Results 24 Hours: Test 04/16/16 13:17 04/17/16 05:51 Hematocrit 37.2 % 36.2 % Hemoglobin 12.7 g/dL 12.0 g/dL White Blood Count 12.24 K/uL Red Blood Count 3.84 M/uL Mean Corpuscular Volume 94.3 fL Mean Corpuscular Hemoglobin 31.3 pg Mean Corpuscular Hemoglobin Concent 33.1 g/dl Platelet Count 186 K/uL Mean Platelet Volume 9.5 fL Neutrophils (%) (Auto) 75.0 % Lymphocytes (%) (Auto) 14.1 % Monocytes (%) (Auto) 10.2 % Eosinophils (%) (Auto) 0.2 % Basophils (%) (Auto) 0.2 % Neutrophils # (Auto) 9.17 K/uL Lymphocytes # (Auto) 1.72 K/uL Monocytes # (Auto) 1.25 K/uL Eosinophils # (Auto) 0.03 K/uL Basophils # (Auto) 0.03 K/uL Assessment & Plan Assessment: s/p lumbar decomp/fusion Plan: Transfer to med surg, continue pain control, begin PT, d/c reyes, dvt prophylaxis, disposition pending
[2016-04-17] MEDS: OXYCODONE HCL IR 5 MG TAB (IMMEDIATE RELEASE) PO PRN ×2 (12:45→23:35)
[2016-04-17] MEDS ORDERED: NURSING VERBAL MED ORDER ONE (13:15)
--- NOTE | 2016-04-17 14:52 | Pharmacy Progress Note ---
Glycemic: Assessment & Plan Date of Service Apr 17, 2016. Assessment & Plan Assessment * BSG's persistently elevated, ranging 167-275 mg/dL over the last 24 hours but 2nd dose of Lantus administered this AM and not fully effective, yet * Will continue Novolog as ordered. Will slightly tighten correction factor and add overnight BSG check if HS BSG elevated Plan Continue the following: * Basal insulin: Lantus 20 units every 12 hours - 1/2 for BSG < 100 mg/dL * Correctional Insulin: Novolog Correction per scale ACHS Goal Range: Low 100 mg/dL - High 140 mg/dL Correction Factor: 18 mg/dL/unit * Prandial insulin: Per carb ratio of 1 unit per 6 grams CHO consumed Pharmacy will continue to monitor patient daily and write orders per [facility] inpatient glycemic control protocol. Thanks. * Please note that the plan above was derived based on current level of insulin resistance and hospital stress. These recommendations are appropriate for inpatient admission only. Plan of care upon discharge will need to be reassessed to avoid potential outpatient hypo/hyperglycemia.
[2016-04-17] MEDS: HYDROmorphone INJ 0.5 MG/0.5 ML SYR IV PRN (16:16)
--- NOTE | 2016-04-17 18:02 | Progress Note ---
Internal Med Progress Note Date of Service: Apr 17, 2016. Provider Documentation: SUBJECTIVE: The patient was seen and examined Denies any complaints except some back pain No numbness and or tingling in legs Has had some Chest [id number] OBJECTIVE: Vital Signs-as noted below Exam: General-no distress at rest Eyes-normal ENT-normal Neck-supple Lungs-clear to ausucltate bilaterally Heart-Regular,no murmur Abdomen-Benign,no masses,bowel sound present Extremities-Trace edema bilaterally Neuro-Benign,no masses,bowel sound present Lab data as noted below. ASSESSMENT & PLAN: L2-S1 DECOMPRESSION/FUSION -POD# [address] Mera -Management as per ortho to include- pain control, bowel regimen, DVT prophylaxis, PT/OT, incentive spirometry, wound care Acute Blood Loss Anemia -EBL 1L -BPs running low likely secondary to acute blood loss, repeat H&H 12.7 -Gentle IVF hydration -follow H&H-stable INTRAOPERATIVE ACCIDENTAL NEEDLE STICK -Patient made aware by this administrative underwriter, all questions answered and consent signed -consent signed and on chart -Patient requested that result be given to him directly from the [facility] and not from his PCP - supervising nurse made aware HTN -running low intraoperatively, improved now -BP is stable -will restart BP medication DM2 -A1c ::7.0 -Hold po diabetic agents -SSI coverage -BSG AC HS HYPOTHYROIDISM -per record, not on hormone replacement -check TSH PAD -resume aspirin when okay with ortho GOUT -continue Allopurinol DEPRESSION -continue Celexa DVT PROPHYLAXIS: per ortho CODE STATUS: FULL CODE DISPO: As Per Primary Vital Signs: Date Time Temp Pulse Resp B/P Pulse Ox O2 Delivery O2 Flow Rate FiO2 04/17/16 15:16 36.7 118 20 114/65 94 Nasal Cannula 3.0 04/17/16 13:23 36.8 119 18 135/72 92 Room Air 04/17/16 11:30 36.8 110 18 143/73 94 Room Air 04/17/16 11:30 Room Air 04/17/16 11:09 113 89 04/17/16 10:52 36.3 113 18 91 04/17/16 08:00 Nasal Cannula 2.0 04/17/16 08:00 36.9 117 18 136/79 94 2.0 04/17/16 04:23 Nasal Cannula 2.0 04/17/16 03:51 37.2 116 20 127/73 94 Nasal Cannula 2.0 04/17/16 00:48 Nasal Cannula 2.0 04/16/16 23:51 36.8 108 21 92/58 94 Nasal Cannula 2.0 04/16/16 20:20 36.7 111 24 109/65 92 Nasal Cannula 2.0 04/16/16 20:00 92 Nasal Cannula 2.0 04/16/16 19:24 109 109/70 04/16/16 18:43 36.6 108 16 114/71 92 Room Air Lab Results: Results Past 24 Hours Test 04/16/16 19:53 04/17/16 00:38 04/17/16 04:00 04/17/16 05:51 Range/Units Bedside Glucose 275 180 167 70-99 mg/dl White Blood Count 12.24 4.8-10.8 K/uL Red Blood Count 3.84 4.7-6.1 M/uL Hemoglobin 12.0 14.0-18.0 g/dL Hematocrit 36.2 42-52 % Mean Corpuscular Volume 94.3 80-100 fL Mean Corpuscular Hemoglobin 31.3 25-34 pg Mean Corpuscular Hemoglobin Concent 33.1 32-36 g/dl Platelet Count 186 130-400 K/uL Mean Platelet Volume 9.5 7.4-10.4 fL Neutrophils (%) (Auto) 75.0 % Lymphocytes (%) (Auto) 14.1 % Monocytes (%) (Auto) 10.2 % Eosinophils (%) (Auto) 0.2 % Basophils (%) (Auto) 0.2 % Neutrophils # (Auto) 9.17 1.4-6.5 K/uL Lymphocytes # (Auto) 1.72 1.2-3.4 K/uL Monocytes # (Auto) 1.25 0.11-0.59 K/uL Eosinophils # (Auto) 0.03 0-0.5 K/uL Basophils # (Auto) 0.03 0-0.2 K/uL RDW Standard Deviation 47.9 36.4-46.3 fL RDW Coefficient of Variation 14.0 11.5-14.5 % Immature Granulocyte % (Auto) 0.3 % Immature Granulocyte # (Auto) 0.04 0.00-0.02 K/uL Sodium Level 136 136-145 mmol/L Potassium Level 4.1 3.5-5.1 mmol/L Chloride Level 101 98-107 mmol/L Carbon Dioxide Level 25 21-32 mmol/L Anion Gap 10.0 3-11 mmol/L Blood Urea Nitrogen 22 7-18 mg/dl Creatinine 0.88 0.60-1.40 mg/dl Est Creatinine Clear Calc Drug Dose 123.4 ml/min Estimated GFR () 102.3 Estimated GFR (Non- 88.3 BUN/Creatinine Ratio 25.5 10-20 Random Glucose 170 70-99 mg/dl Estimated Average Glucose 154 mg/dl Hemoglobin A1c 7.0 4.5-5.6 % Calcium Level 8.4 8.5-10.1 mg/dl Thyroid Stimulating Hormone (TSH) 0.931 0.300-4.500 uIu/ml Test 04/17/16 10:51 04/17/16 11:42 04/17/16 16:35 Range/Units Bedside Glucose 212 212 215 70-99 mg/dl
[2016-04-17] MEDS: HYDROmorphone INJ 1 MG/ML SYR IV PRN ×2 (19:33→23:35)
[2016-04-17] MEDS ORDERED: PANTOprazole INJ 40 MG in SYRINGE 0 ML IV SCH (20:30)
--- NOTE | 2016-04-17 20:37 | DIAGNOSTIC IMAGING REPORT ---
SINGLE VIEW CHEST CLINICAL HISTORY: Dyspnea. Recent back surgery. FINDINGS: An AP, portable, upright chest radiograph is obtained. No prior studies are available for comparison at the time of dictation. The examination is degraded by portable technique, apical positioning, large body habitus, and patient rotation. The heart is top normal for projection. The pulmonary vasculature is noncongested. There is elevation of the right hemidiaphragm. There are small pleural effusions and/or dependent atelectasis. No airspace consolidation is seen typical for pneumonia. No pneumothorax is seen. The bony thorax is grossly intact. Degenerative changes noted throughout the thoracic spine. IMPRESSION: Small pleural effusions and/or bibasilar atelectasis. The lungs are otherwise clear. Electronically signed by: Marcus Chambers M.D. 04/17/2016 8:36 PM Dictated Date/Time: 04/17/2016 8:33 PM
[2016-04-17] MEDS: NORTRIPTYLINE HCL 25 MG CAP PO SCH (22:19)
[2016-04-17] MEDS: ALLOPURINOL 100 MG TAB PO SCH (22:20)
[2016-04-17] MEDS: DOCUSATE SODIUM/SENNA 50/8.6MG TAB PO SCH (22:22)
[2016-04-18] VITALS (8 sets, daily range): BP systolic 116–155; BP diastolic 62–91; PULSE 107–122; TEMP 36.6–37.7; O2SAT 90–96
[2016-04-18] MEDS ORDERED: INSULIN ASPART 100 UNITS/ML 3 ML PEN SC SCH ×2 (02:00)
[2016-04-18] MEDS: OXYCODONE HCL IR 5 MG TAB (IMMEDIATE RELEASE) PO PRN ×4 (04:04→17:24)
[2016-04-18] MEDS: HYDROmorphone INJ 0.5 MG/0.5 ML SYR IV PRN (04:57)
[2016-04-18] MEDS: POLYETHYLENE (MIRALAX) 17 GM PACK PO SCH ×4 (05:54→23:44)
[2016-04-18 06:08] LABS: HEMATOCRIT 34.5 % (42-52); MEAN CELL VOLUME 92.7 fL (80-100); MEAN CORPUSCULAR HEMOGLOBIN 31.7 pg (25-34); MEAN CORPUSCULAR HGB CONC 34.2 g/dl (32-36); MEAN PLATELET VOLUME 9.5 fL (7.4-10.4); PLATELET COUNT 155 K/uL (130-400); RED BLOOD COUNT 3.72 M/uL (4.7-6.1); WHITE BLOOD COUNT 10.63 K/uL (4.8-10.8)
[2016-04-18 06:45] LABS: BUN/CREATININE RATIO 15.8 (10-20); CALCIUM 8.6 mg/dl (8.5-10.1); CREATININE 0.75 mg/dl (0.60-1.40); MAGNESIUM 2.2 mg/dl (1.8-2.4); POTASSIUM 3.6 mmol/L (3.5-5.1)
[2016-04-18] MEDS: INSULIN ASPART 100 UNITS/ML 3 ML PEN SC SCH ×5 (09:28→23:44)
[2016-04-18] MEDS: INSULIN GLARGINE SOLOSTAR 100 UNITS/ML 3 ML PEN SC SCH ×2 (09:28→21:28)
[2016-04-18] MEDS: CITALOPRAM 20 MG TAB PO SCH (09:33)
[2016-04-18] MEDS: GABAPENTIN 300 MG CAP PO SCH ×2 (09:33→21:31)
[2016-04-18] MEDS: ASPIRIN 81 MG ECTAB PO SCH (09:33)
[2016-04-18] MEDS: PANTOprazole SOD 40 MG TAB PO SCH (09:38)
[2016-04-18] MEDS ORDERED: SODIUM CHLORIDE 0.9% 500ML 500 ML IV SCH (10:30)
[2016-04-18] MEDS ORDERED: METOPROLOL TARTRATE 25 MG TAB PO ONE (10:30)
--- NOTE | 2016-04-18 11:44 | Pharmacy Progress Note ---
Glycemic: Assessment & Plan Date of Service Apr 18, 2016. Assessment & Plan POD#2 lumbar decompression. The patient is currently receiving 72 units of insulin per day. BSGs ranging 167 - 235 mg/dl over the past 24hrs. I will further tighten CF and CR to bring BSGs down into goal level. Will restart Metformin with dinner tonight, patient eating, SCr at baseline. * Basal insulin: Lantus 20 units every 12 hours - Half dose for BSG < 100mg/dL * Correctional Insulin: Novolog Correction per scale ACHS Goal Range: Low 100 mg/dL - High 140 mg/dL - for patient's age, A1c and to facilitate post op healing TIGHTEN: Correction Factor: 15 mg/dL/unit * Prandial insulin: TIGHTEN: Per carb ratio of 1 unit per 5 grams CHO consumed * Orals: Metformin ER 1000mg BID with breakfast and dinner- restart tonight with dinner Pharmacy will continue to monitor patient daily and write orders per [facility] inpatient glycemic control protocol. Thanks. * Please note that the plan above was derived based on current level of insulin resistance and hospital stress. These recommendations are appropriate for inpatient admission only. Plan of care upon discharge will need to be reassessed to avoid potential outpatient hypo/hyperglycemia.
--- NOTE | 2016-04-18 12:17 | Orthopedic Progress Note ---
Orthopedic Progress Note Date of Service Apr 18, 2016. Subjective Post OP Day: 2 Reports: calf pain, Denies: SOB, chest pain, complaints, feeling well, light headedness, nausea / vomiting Additional Notes: Pain is present and limiting progress. Remains tachycardic. No symptoms or issues to report. Objective calves soft nontender, N/V intact, capillary refill less than 2 sec., dressing C /D/I, toes mobile, hemovac drainage Date Time Temp Pulse Resp B/P Pulse Ox O2 Delivery O2 Flow Rate FiO2 04/18/16 11:29 37.7 122 19 116/62 90 Room Air 04/18/16 08:22 36.6 112 16 119/75 94 Room Air 04/18/16 08:06 96 2.0 04/18/16 07:26 96 Nasal Cannula 2.0 04/18/16 07:15 92 Nasal Cannula 4.0 04/18/16 00:10 Nasal Cannula 4.0 04/17/16 23:10 36.8 119 18 108/53 92 Room Air 04/17/16 19:37 95 Nasal Cannula 4.0 04/17/16 19:35 114 117/66 95 Nasal Cannula 6.0 04/17/16 19:19 97 Nasal Cannula 6.0 04/17/16 19:18 116 125/68 92 3.0 04/17/16 16:00 Room Air 04/17/16 15:16 36.7 118 20 114/65 94 Nasal Cannula 3.0 04/17/16 13:23 36.8 119 18 135/72 92 Room Air Laboratory Results 24 Hours: Test 04/18/16 05:45 Hematocrit 34.5 % Hemoglobin 11.8 g/dL Assessment & Plan Assessment: s/p lumbar decomp/fusion Plan: continue pain control, continue PT, dvt prophylaxis, soc service consult for placement, disposition pending Discharge Planning Discharge Planning: home Pain Management: Oxy IR DVT Prophylaxis: SCDs Therapy: Physical Therapy, Occupational Therapy
[2016-04-18] MEDS ORDERED: METFORMIN HCL 500 MG TABCR PO SCH (17:45)
[2016-04-18] MEDS: HYDROmorphone INJ 1 MG/ML SYR IV PRN (17:57)
--- NOTE | 2016-04-18 19:30 | Progress Note ---
Internal Med Progress Note Date of Service: Apr 18, 2016. Provider Documentation: SUBJECTIVE: The patient was seen and examined Has had some Chest [id number] Remains tachycardic since admission No dehydration OBJECTIVE: Vital Signs-as noted below Exam: General-no distress at rest Eyes-normal ENT-normal Neck-supple Lungs-clear to ausucltate bilaterally Heart-Regular,no murmur Abdomen-Benign,no masses,bowel sound present Extremities-Trace edema bilaterally Neuro-Benign,no masses,bowel sound present Lab data as noted below. ASSESSMENT & PLAN: L2-S1 DECOMPRESSION/FUSION -POD# [address] Mera -Management as per ortho to include- pain control, bowel regimen, DVT prophylaxis, PT/OT, incentive spirometry, wound care Acute Blood Loss Anemia -EBL 1L -BPs running low likely secondary to acute blood loss, repeat H&H 12.7 -Gentle IVF hydration -follow H&H- 11.8 INTRAOPERATIVE ACCIDENTAL NEEDLE STICK -Patient made aware by this display card writer, all questions answered and consent signed -consent signed and on chart -Patient requested that result be given to him directly from the [facility] and not from his PCP - supervising nurse made aware HTN with Ongoing Tachycardia -running low intraoperatively, improved now -BP is stable -Lopressor 25 mg BID is added to control BP and Heart rate DM2 -A1c ::7.0 -Hold po diabetic agents -SSI coverage -BSG AC HS HYPOTHYROIDISM -per record, not on hormone replacement -check TSH-normal at 0.931 PAD -resume aspirin when okay with ortho GOUT -continue Allopurinol DEPRESSION -continue Celexa DVT PROPHYLAXIS: per ortho CODE STATUS: FULL CODE DISPO: As Per Primary Vital Signs: Date Time Temp Pulse Resp B/P Pulse Ox O2 Delivery O2 Flow Rate FiO2 04/18/16 15:28 36.9 111 20 130/76 91 Room Air 04/18/16 11:29 37.7 122 19 116/62 90 Room Air 04/18/16 08:22 36.6 112 16 119/75 94 Room Air 04/18/16 08:06 96 2.0 04/18/16 07:26 96 Nasal Cannula 2.0 04/18/16 07:15 92 Nasal Cannula 4.0 04/18/16 00:10 Nasal Cannula 4.0 04/17/16 23:10 36.8 119 18 108/53 92 Room Air 04/17/16 19:37 95 Nasal Cannula 4.0 04/17/16 19:35 114 117/66 95 Nasal Cannula 6.0 Lab Results: Results Past 24 Hours Test 04/17/16 20:45 04/18/16 01:50 04/18/16 05:45 04/18/16 08:00 Range/Units Bedside Glucose 235 199 208 70-99 mg/dl White Blood Count 10.63 4.8-10.8 K/uL Red Blood Count 3.72 4.7-6.1 M/uL Hemoglobin 11.8 14.0-18.0 g/dL Hematocrit 34.5 42-52 % Mean Corpuscular Volume 92.7 80-100 fL Mean Corpuscular Hemoglobin 31.7 25-34 pg Mean Corpuscular Hemoglobin Concent 34.2 32-36 g/dl RDW Standard Deviation 46.7 36.4-46.3 fL RDW Coefficient of Variation 13.7 11.5-14.5 % Platelet Count 155 130-400 K/uL Mean Platelet Volume 9.5 7.4-10.4 fL Sodium Level 133 136-145 mmol/L Potassium Level 3.6 3.5-5.1 mmol/L Chloride Level 98 98-107 mmol/L Carbon Dioxide Level 24 21-32 mmol/L Anion Gap 11.0 3-11 mmol/L Blood Urea Nitrogen 12 7-18 mg/dl Creatinine 0.75 0.60-1.40 mg/dl Est Creatinine Clear Calc Drug Dose 144.8 ml/min Estimated GFR () 109.2 Estimated GFR (Non- 94.3 BUN/Creatinine Ratio 15.8 10-20 Random Glucose 187 70-99 mg/dl Calcium Level 8.6 8.5-10.1 mg/dl Magnesium Level 2.2 1.8-2.4 mg/dl Test 04/18/16 10:48 04/18/16 11:57 04/18/16 17:47 Range/Units Bedside Glucose 261 266 312 70-99 mg/dl
[2016-04-18] MEDS ORDERED: METOPROLOL TARTRATE 25 MG TAB PO SCH (21:00)
[2016-04-18] MEDS: DOCUSATE SODIUM/SENNA 50/8.6MG TAB PO SCH (21:31)
[2016-04-18] MEDS: NORTRIPTYLINE HCL 25 MG CAP PO SCH (21:31)
[2016-04-18] MEDS: ALLOPURINOL 100 MG TAB PO SCH (21:31)
[2016-04-18] MEDS: METOPROLOL TARTRATE 25 MG TAB PO SCH (21:31)
[2016-04-18] MEDS ORDERED: INSULIN GLARGINE SOLOSTAR 100 UNITS/ML 3 ML PEN SC SCH (22:00)
[2016-04-19] MEDS: INSULIN ASPART 100 UNITS/ML 3 ML PEN SC SCH ×3 (03:45→13:03)
[2016-04-19] MEDS: POLYETHYLENE (MIRALAX) 17 GM PACK PO SCH ×2 (05:02→12:00)
[2016-04-19] MEDS: HYDROmorphone INJ 1 MG/ML SYR IV PRN ×2 (05:04→10:53)
[2016-04-19 06:10] LABS: HEMATOCRIT 34.4 % (42-52); MEAN CELL VOLUME 91.7 fL (80-100); MEAN CORPUSCULAR HEMOGLOBIN 31.2 pg (25-34); MEAN PLATELET VOLUME 9.6 fL (7.4-10.4); PLATELET COUNT 170 K/uL (130-400); RED BLOOD COUNT 3.75 M/uL (4.7-6.1); WHITE BLOOD COUNT 11.18 K/uL (4.8-10.8)
[2016-04-19 06:42] LABS: BUN/CREATININE RATIO 15.4 (10-20); CALCIUM 8.7 mg/dl (8.5-10.1); CREATININE 0.74 mg/dl (0.60-1.40); MAGNESIUM 2.1 mg/dl (1.8-2.4); POTASSIUM 3.4 mmol/L (3.5-5.1)
--- NOTE | 2016-04-19 07:07 | Orthopedic Progress Note ---
Orthopedic Progress Note Date of Service Apr 19, 2016. Subjective Reports: feeling well, pain controlled w PO medications, Denies: SOB, calf pain , chest pain, complaints, light headedness, nausea / vomiting Additional Notes: Improved pain control, awaiting placement. No new issues. He is medically stable this AM. Objective calves soft nontender, N/V intact, capillary refill less than 2 sec., dressing C /D/I, A&O x3, toes mobile, hemovac drainage Date Time Temp Pulse Resp B/P Pulse Ox O2 Delivery O2 Flow Rate FiO2 04/18/16 23:32 36.9 107 16 155/91 91 Room Air 04/18/16 21:26 121 135/77 04/18/16 21:00 Room Air 04/18/16 15:28 36.9 111 20 130/76 91 Room Air 04/18/16 11:29 37.7 122 19 116/62 90 Room Air 04/18/16 08:22 36.6 112 16 119/75 94 Room Air 04/18/16 08:06 96 2.0 04/18/16 07:26 96 Nasal Cannula 2.0 04/18/16 07:15 92 Nasal Cannula 4.0 Laboratory Results 24 Hours: Test 04/19/16 05:00 Hematocrit 34.4 % Hemoglobin 11.7 g/dL Assessment & Plan Assessment: s/p lumbar decomp/fusion Plan: continue pain control, continue PT, dvt prophylaxis, disposition pending Discharge Planning Discharge Planning: home Pain Management: Oxy IR DVT Prophylaxis: SCDs Therapy: Physical Therapy, Occupational Therapy
[2016-04-19 07:43] VITALS: BP 112/69; PULSE 108; TEMP 37.3; O2SAT 90
[2016-04-19 07:49] VITALS: O2SAT 90
[2016-04-19] MEDS: METOPROLOL TARTRATE 25 MG TAB PO SCH (08:51)
[2016-04-19] MEDS: PANTOprazole SOD 40 MG TAB PO SCH (08:52)
[2016-04-19] MEDS: ASPIRIN 81 MG ECTAB PO SCH (08:52)
[2016-04-19] MEDS: GABAPENTIN 300 MG CAP PO SCH (08:52)
[2016-04-19] MEDS: CITALOPRAM 20 MG TAB PO SCH (08:52)
[2016-04-19] MEDS ORDERED: INSULIN GLARGINE SOLOSTAR 100 UNITS/ML 3 ML PEN SC SCH (09:00)
--- NOTE | 2016-04-19 09:55 | Pharmacy Progress Note ---
Glycemic: Assessment & Plan Date of Service Apr 19, 2016. Assessment & Plan POD#3 lumbar decompression. The patient is currently receiving 93 units of insulin per day. BSGs ranging 145-312 mg/dl over the past 24hrs. One high BSG at 312mg/dl prior to dinner last night, at that time Lantus was increased. I will further tighten CF and CR to bring BSGs down into goal level. I had restarted Metformin with dinner last night but patient not eating as well anymore, so I will place on hold. * Basal insulin: INCREASE: Lantus 25 units every 12 hours - Half dose for BSG < 100mg/dL * Correctional Insulin: Novolog Correction per scale ACHS Goal Range: Low 100 mg/dL - High 140 mg/dL - for patient's age, A1c and to facilitate post op healing TIGHTEN: Correction Factor: 12 mg/dL/unit * Prandial insulin: TIGHTEN: Per carb ratio of 1 unit per 4 grams CHO consumed * Orals: HOLD Metformin ER 1000mg BID Pharmacy will continue to monitor patient daily and write orders per [facility] inpatient glycemic control protocol. Thanks. * Please note that the plan above was derived based on current level of insulin resistance and hospital stress. These recommendations are appropriate for inpatient admission only. Plan of care upon discharge will need to be reassessed to avoid potential outpatient hypo/hyperglycemia.
[2016-04-19] MEDS ORDERED: POTASSIUM CHLORIDE 20 MEQ TABCR PO ONE (12:45)
[2016-04-19 13:51] VITALS: BP 112/69; PULSE 108; TEMP 37.3; O2SAT 90
--- NOTE | 2016-04-24 08:49 | Orthopedic Progress Note ---
Orthopedic Progress Note Date of Service Apr 24, 2016. Subjective Additional Notes: Mr. Blanton is a 70 y/o 8 days s/p lumbar decompression and fusion. He was discharged following surgery on the to [facility] for continued rehab due to slow rehab progress. His complaints initiailly were low back and left leg pain x 6 weeks. Following surgery, pain resolved, but numbness and weakness of LLE persisted. He presented to the ER yesterday and was diagnosed with an arterial occlusion of the LLE. He was admitted to the medical service and we were consulted along with vascular surgery. Currently he is laying in bed, reporting no back pain. He continues to have weakness and numbness of the LLE, no symptoms in his RLE. He has minimal back pain attributed to post op pain. Incision is healing with no erythema or drainage. [place] remain in place. Medically, he appears stable and comfortable this AM. Objective Patient is alert and oriented x 3. Incision is clean and dry with no evidence of erythema or drainage. [place] remain in place. He moves with slight discomfort noted in his back. Lumbar motion is diminished. He exhibits weakness of his left ankle in all directional movements. He also has weakness of his toes. Sensation is also diminished from knee to his foot. Reflexes are absent. Assessment & Plan Assessment: LLE arterial occlusion 8d s/p lumbar decomp/fusion Plan: Ok to anticoagulate at this point, patient is n/v intact. Awaiting vascular consultation Will obtain lumbar xrays while hospitilized Will follow Discharge Planning Discharge Planning: home Pain Management: Oxy IR DVT Prophylaxis: SCDs Therapy: Physical Therapy, Occupational Therapy
[2016-04-24] MEDS ORDERED: NTRSLP4 SL (16:22)
[2016-04-24] MEDS ORDERED: LPR25 PO (16:22)
--- NOTE | 2016-04-30 10:45 | DISCHARGE SUMMARY ---
PRINCIPAL DIAGNOSIS: Lumbar spinal stenosis with facet arthrosis, degenerative disc disease and degenerative scoliosis. POSTOPERATIVE DIAGNOSIS: Same. PROCEDURE: L3, L4, L5 laminectomies with bilateral medial facetectomies, pedicle screw instrumentation at L2, L3, L4, L5 and S1, posterolateral fusion L2-S1 right iliac crest bone marrow aspiration and stem cell concentrations. SURGEON: Dr. Petros Todd. WASHER AND CRUSHER TENDER: Darrell Bourgeois PA-C. HISTORY OF PRESENT ILLNESS: Please refer to EMR. HOSPITAL COURSE: On 04/16/2016 Mr. Blanton was admitted to [facility] with the above diagnosis. He was taken to preoperative holding where he was identified, evaluated and cleared for surgical management. He was transported to the operating room where he was introduced with general endotracheal anesthesia. He successfully underwent the above procedure without complication or issue. He was awakened in stable and satisfactory condition and transported to postoperative recovery where his vital signs and pain were monitored and managed successfully. He remained medically stable and was transported to the orthopedic floor for continued care. Throughout his stay, his vital signs and labs were routinely monitored and managed through physician direction. Pain was well controlled. He participated in therapy with noted progress. DVT and GI prophylactic measures were taken. There were no complications or iatrogenic issues to note. On 04/19/2016 after provider evaluation, he was indicated for discharge from [facility] with transfer to rehabilitation inpatient facility. On this date he was discharged from [facility]. DISPOSITION: Rehabilitation inpatient facility. DISPOSITION CONDITION: Stable. NOTED COMPLICATIONS OR ISSUES: Zero. DISCHARGE INSTRUCTIONS: Please refer to EMR.
== END 2016-04-19 14:43 | DRG 460 ==
LOC: ENRESERVTM → ENRESERVDT → C.ACU 07:35 → C.2T 13:54 → C.MSN 04-17 11:40
PROVIDERS: ADMIT Orthopaedic Surgery Orthopaedic Surgery of the Spine; ATTEND Orthopaedic Surgery Orthopaedic Surgery of the Spine
PROC: [UNRECOGNIZED PROCEDURE] (2016-04-16)
PROC: 07DR3ZZ Extraction of Iliac Bone Marrow, Percutaneous Approach (ICD-10-PCS; 2016-04-16)
PROC: [UNRECOGNIZED PROCEDURE] (principal; 2016-04-16 09:05)
DX: M48.06 Spinal stenosis, lumbar region (principal); D62 Acute posthemorrhagic anemia; M41.9 Scoliosis, unspecified; M21.372 Foot drop, left foot; E11.51 Type 2 diabetes mellitus with diabetic peripheral angiopathy without gangrene; M10.9 Gout, unspecified; E03.9 Hypothyroidism, unspecified; E78.00 Pure hypercholesterolemia, unspecified; Z88.0 Allergy status to penicillin; Z79.82 Long term (current) use of aspirin; Z79.899 Other long term (current) drug therapy; Z79.4 Long term (current) use of insulin; I10 Essential (primary) hypertension; E78.5 Hyperlipidemia, unspecified; Z87.891 Personal history of nicotine dependence; E66.9 Obesity, unspecified; Z68.38 Body mass index [BMI] 38.0-38.9, adult; I95.9 Hypotension, unspecified; F32.9 Major depressive disorder, single episode, unspecified

== ENCOUNTER 2016-04-23 18:57 | Inpatient (IN) | payer BC, OTHER ==
[~2016-04-23] VITALS: Ht 193 cm; Wt 138.2 kg
[~2016-04-23 18:57] MED LIST changes: -CLINDAMYCIN 600 MG/54 ML D5W IV SCH; -CeleBREX 200 MG CAP PO SCH; -IBUP-103 PO; -INDO-22 PO; +OXYC-57 PO; -PREGABALIN 75 MG CAP PO SCH
[2016-04-23] MEDS ORDERED: SODIUM CHLORIDE 0.9% 1000ML 1,000 ML IV STA (19:06)
--- NOTE | 2016-04-23 19:43 | DIAGNOSTIC IMAGING REPORT ---
SINGLE VIEW CHEST CLINICAL HISTORY: Left leg pain. FINDINGS: 2 AP, portable, upright chest radiographs are compared to study dated 04/17/2016. The examination is degraded by portable technique, apical positioning, large body habitus, and patient rotation. The heart is top normal for projection. The pulmonary vasculature is noncongested. There is unchanged elevation of the right hemidiaphragm. Minimal bibasilar atelectasis is seen. No airspace consolidation or pleural effusion is identified. No pneumothorax is seen. The bony thorax is grossly intact. Degenerative changes noted throughout the thoracic spine. IMPRESSION: No acute cardiopulmonary abnormality. Electronically signed by: Marcus Chambers M.D. 04/23/2016 7:41 PM Dictated Date/Time: 04/23/2016 7:40 PM
[2016-04-23 20:02] LABS: BASO % 0.2 %; BASO ABS # 0.02 K/uL (0-0.2); COMPLETE YES; EOS % 1.7 %; HEMATOCRIT 35.3 % (42-52); IG% 0.6 %; LYMPH % 11.6 %; LYMPH ABS # 1.33 K/uL (1.2-3.4); MEAN CELL VOLUME 90.5 fL (80-100); MEAN CORPUSCULAR HGB CONC 34.3 g/dl (32-36); MEAN PLATELET VOLUME 9.1 fL (7.4-10.4); NEUT % 75.9 %; PLATELET COUNT 341 K/uL (130-400); WHITE BLOOD COUNT 11.44 K/uL (4.8-10.8)
[2016-04-23 20:08] LABS: PARTIAL THROMBOPLASTIN RATIO 1.2
[2016-04-23 20:17] LABS: BUN/CREATININE RATIO 24.2 (10-20); CALCIUM 9.1 mg/dl (8.5-10.1); CREATININE 1.1 mg/dl (0.60-1.40); POTASSIUM 3.7 mmol/L (3.5-5.1)
[2016-04-23 20:33] LABS: CKMB/CK RATIO 2.2 (0-3.0)
--- NOTE | 2016-04-23 21:09 | DIAGNOSTIC IMAGING REPORT ---
ULTRASOUND LEFT LOWER EXTREMITY VENOUS CLINICAL HISTORY: Left leg pain. COMPARISON STUDY: No priors. TECHNIQUE: Real-time, grayscale, and color Doppler sonography of the deep veins of the left lower extremity was performed from the inguinal crease to the calf. Compression and augmentation were utilized. FINDINGS: There is no sonographic evidence of deep venous thrombosis identified in the left lower extremity. The common femoral, superficial femoral, and popliteal veins are patent and normally compressible. The greater saphenous vein and the profunda femoris vein at the junction with the common femoral vein are clear. The visualized calf veins are patent. IMPRESSION: There is no sonographic evidence of deep venous thrombosis identified in the left lower extremity. Electronically signed by: Marcus Chambers M.D. 04/23/2016 9:08 PM Dictated Date/Time: 04/23/2016 9:07 PM
[2016-04-23] MEDS ORDERED: OXYM1TAB24 PO (21:18)
[2016-04-23] MEDS ORDERED: ATOR10TA88 PO (21:18)
[2016-04-23] MEDS ORDERED: SODIENE PR (21:18)
[2016-04-23] MEDS ORDERED: MOMLX PO (21:18)
[2016-04-23] MEDS ORDERED: HYDR2TAB48 PO (21:18)
[2016-04-23] MEDS ORDERED: BISA10SU3 PR (21:18)
--- NOTE | 2016-04-23 21:23 | DIAGNOSTIC IMAGING REPORT ---
ULTRASOUND LEFT LOWER EXTREMITY ARTERIAL CLINICAL HISTORY: Left leg pain. COMPARISON STUDY: No priors. TECHNIQUE: Real-time, grayscale, and color Doppler sonography of the left lower extremity arteries is performed from the inguinal crease to the foot. The patient declined ankle-brachial index assessment. FINDINGS: There is advanced atherosclerotic plaque and irregularity seen throughout the arteries of the left lower extremity. Only trace arterial flow is seen throughout the arteries of the left lower extremity. Velocities in the left common femoral artery measure up to 9 cm/s. The profundus femoris artery appears occluded. Trace flow is seen throughout the left superficial femoral artery with velocities measuring up to 44 cm/s. Monophasic flow is seen within the left popliteal artery with velocities measuring up to 20 cm/s. Monophasic flow is seen within the calf arteries which appear patent. There is no flow seen within the dorsalis pedis artery. IMPRESSION: 1. Severe peripheral vascular disease is noted throughout the arteries of the left lower extremity. Only trace flow is seen throughout the arteries of the left lower extremity. 2. There is occlusion of the left profunda femoris artery and the left dorsalis pedis artery. Dictated: 04/23/2016 9:08 PM Transcribed: 04/23/2016 9:23 PM [email or web address] Electronically signed by: Marcus Chambers M.D. 04/23/2016 9:53 PM Dictated Date/Time: 04/23/2016 9:08 PM
[2016-04-23] MEDS ORDERED: ONDANSETRON INJ 2 MG/ML 2 ML VIAL IV STA (21:28)
[2016-04-23] MEDS: MoRPHine SULFATE 4 MG/ML 1 ML CARP\\VIAL IV PRN ×2 (21:39→22:41)
[2016-04-23] MEDS ORDERED: NITROGLYCERIN 0.4 MG SL PER TAB CHARGE SL PRN (21:45)
[2016-04-23] MEDS ORDERED: MAGNESIUM HYDROXIDE SUSP 30 ML UDC PO PRN (21:45)
[2016-04-23] MEDS ORDERED: ONDANSETRON INJ 2 MG/ML 2 ML VIAL IV PRN (21:45)
[2016-04-23] MEDS ORDERED: OXYCODONE/ACETAMINOPHEN 5-325 TAB PO PRN (21:45)
[2016-04-23] MEDS ORDERED: SOD PHOSPHATE/SOD BIPHOSPHATE ENEMA 132 ML BTL PR PRN (21:45)
[2016-04-23] MEDS ORDERED: HYDROmorphone HCL 2 MG TAB PO PRN (21:45)
[2016-04-23] MEDS ORDERED: ACETAMINOPHEN 325 MG TAB PO PRN (21:45)
[2016-04-23] MEDS ORDERED: BISACODYL 10 MG SUPP PR PRN (21:45)
[2016-04-23] MEDS ORDERED: OPTIRAY 320 IV PRN (22:00)
[2016-04-23] MEDS ORDERED: HEPARIN 25000 UNIT/500 ML D5W ONE (22:26)
[2016-04-23] MEDS ORDERED: HEPARIN SOD 5000 UNIT/0.5 ML CARP ONE (22:26)
[2016-04-23] MEDS ORDERED: HEPARIN SOD (PORCINE) 1000 UNIT/ML 10 ML VIAL IV STA (22:29)
[2016-04-23] MEDS ORDERED: HEPARIN 25,000 UNIT/500ML D5W 500 ML IV PRN (22:30)
--- NOTE | 2016-04-23 22:30 | DIAGNOSTIC IMAGING REPORT ---
CT ANGIOGRAM OF THE CHEST CLINICAL HISTORY: Elevated serum troponin levels. Atypical chest pain. Decreased sensation in the left lower extremity. COMPARISON STUDY: Chest radiograph dated 04/23/2016. TECHNIQUE: Following the IV administration of 93 cc of Optiray 320, CT angiogram of the chest was performed from the upper abdomen to the thoracic inlet utilizing the pulmonary embolus protocol. Images are reviewed in the axial, sagittal, and coronal planes. 3-D MIPS images are created and assessed. IV contrast was administered without complication. CT DOSE: 773.40 mGy.cm FINDINGS: Thyroid: Imaged portions of the thyroid gland are normal in size and attenuation. Thoracic aorta: There is evidence carotid calcification of the thoracic aorta, which is normal in caliber and demonstrates bovine variant arch anatomy. No dissection is seen. Pulmonary vasculature: The main pulmonary arteries are dilated suggesting pulmonary artery hypertension. There are no filling defects identified in main, lobar, or segmental pulmonary branches to suggest pulmonary embolus. Heart: The heart is enlarged and without pericardial effusion. The coronary arteries are densely calcified. Lungs and pleural spaces: Evaluation of the lung parenchyma is degraded by motion artifact. There is elevation of the right hemidiaphragm with bibasilar atelectasis. No airspace consolidation or pleural effusion is identified. Secretions are noted in the trachea. Mild diffuse peribronchial thickening is noted. Mediastinum: There is no mediastinal lymphadenopathy. Chiara: Clear. Axillae: There is no axillary lymphadenopathy. Upper abdomen: There is evidence of hepatic steatosis with fatty sparing adjacent to the gallbladder fossa. A small to moderate hiatal hernia is noted. There is significant fatty atrophy of the pancreas. There are numerous pancreatic parenchymal calcifications indicating chronic pancreatitis. Skeletal structures: The skeletal structures appear osteopenic. Degenerative change is seen throughout the thoracic spine. No lytic or blastic bony lesions are seen. Chronic changes are seen involving the left upper ribs. IMPRESSION: 1. There is no evidence of pulmonary embolus in the main, lobar, or segmental pulmonary arteries. 2. There is no airspace consolidation or pleural effusion. Mild diffuse peribronchial thickening suggests reactive airway disease. Clinical correlation will be required. 3. Cardiomegaly with evidence of pulmonary artery hypertension. 4. Hepatic steatosis. 5. Findings are consistent with chronic pancreatitis. Electronically signed by: Marcus Chambers M.D. 04/23/2016 10:28 PM Dictated Date/Time: 04/23/2016 10:22 PM
[2016-04-23] MEDS ORDERED: GLUCAGON FOR INJ 1 MG VIAL SQ PRN (22:45)
[2016-04-23] MEDS ORDERED: GLUCOSE 10 TABS/TUBE PO PRN (22:45)
[2016-04-23] MEDS ORDERED: DEXTROSE 50% 50 ML SYR IV PRN (22:45)
[2016-04-23] MEDS ORDERED: GLUCOSE 40% GEL 15 GM TUBE PO PRN (22:45)
--- NOTE | 2016-04-23 22:48 | History and Physical ---
History & Physical Date & Time of Service: Apr 23, 2016 at 21:47 Chief Complaint: Decreased Sensation In L Leg. Primary Care Physician: Eleuterio Mcdowell D.O. History of Present Illness Source: patient This is a 70 y/o male with PMHx of PAD, insulin-dependent DM 2, HTN, Dyslipidemia and other problems as outlined below who presents to the ED c/o LLE pain x 6 weeks. Pt reports that 6 weeks ago he woke up with pain in his LLE that he rates at a 9/10. The pain is worse with walking and better with rest. Sxs are assoc with LLE numbness and pallor. He reports that the RLE also bothers him from time to time but never to the same severity as the LLE. Pt had a back surgery by Dr. Todd last week and has been doing rehab at inpatient facility in [place]. He mentions that when he is doing the rehab exercises he has been getting so lightheaded that he feels that he could pass out. A LLE arterial US was done at the rehab facility today which showed no blood flow to LLE due to occlusion. Pt denies fever/chills, diaphoresis, chest pain, palpitations, SOB, wheezing, abd pain, N/V, bowel or bladder issues and LE edema. In the ED, pt is tachy, hypotensive and hypoxic to 89% on room air. Pt is now saturating well on 3L O2. Pt is afebrile with mild leukocytosis. HgB 12.1. Na+ 132. creat 1.1. Trop 3.4 and EKG + T wave inversion and anterior depression in inferior leads with Q wave and T wave abnormality in anterior leads. LLE Arterial US + occlusion of left profunda femoris artery and left dorsalis pedis artery. Pt will be admitted for further evaluation and treatment. Past Medical/Surgical History Medical Problems: (1) Depression Status: Chronic (2) DM2 (diabetes mellitus, type 2) Status: Chronic (3) Gout Status: Chronic (4) HLD (hyperlipidemia) Status: Chronic (5) HTN (hypertension) Status: Chronic (6) Hypothyroid Status: Chronic (7) PAD (peripheral artery disease) Status: Chronic Surgical Problems: (1) History of back surgery Status: Chronic Family History No pertinent family history Social History Smoking Status: Former Smoker (25 pack year history; quit 45 year ago ) Alcohol Use: none Drug Use: none Housing status: unknown (in rehab in [place]) Occupational Status: retired Allergies Coded Allergies: Penicillins (Verified Allergy, Unknown, "PATIENT PASSED OUT" OCCURED CHILD, 04/23/16) Home Medications Scheduled Allopurinol (Zyloprim), 100 MG PO QPM Aspirin (Aspirin Ec), 81 MG PO QAM Atorvastatin (Lipitor), 10 MG PO QPM B-Complex Vitamins (Vitamin B Complex), 1 TAB PO QPM Canagliflozin (Invokana), 300 MG PO QAM Cholecalciferol (Vitamin D3), 1,000 MG PO QAM Citalopram Hydrobromide (Citalopram Hydrobromide), 20 MG PO QAM Fish Oil ([place]-3), 1 CAP PO QAM Gabapentin (Neurontin), 300 MG PO QAM Gabapentin (Neurontin), 600 MG PO HS Hctz/Lisinopril (Lisinopril/Hctz 20/25 Mg), 1 TAB PO QAM Insulin Isophan/Regular (Novolin 70/30), 56 UNITS SC QAM Insulin Isophan/Regular (Novolin 70/30), 60 UNITS SC QPM Metformin Hcl (Glucophage Ext Rel), 1,000 MG PO BID Nortriptyline (Pamelor), 25 MG PO HS Ocuvite Preservision (Ocuvite Preservision), 1 TAB PO BID Oxymorphone Hcl (Opana Er (Crush Resistant), 10 MG PO BID Scheduled PRN Bisacodyl (Dulcolax), 1 SUPP ID DAILY PRN for Constipation Hydromorphone Hcl (Dilaudid), 2 MG PO Q4 PRN for SEVERE PAIN Magnesium Hydroxide (Milk of Magnesia), 30 ML PO DAILY PRN for Constipation Oxycodone/Acetaminophen 5MG/325MG (Percocet 5MG/325MG), 1-2 TABLETS PO Q4 PRN for Pain Sodium Phosphate/Biphosphate (Fleet Enema), 1 EA ID DAILY PRN for Constipation Review of Systems Constitutional: No chills, No fatigue, No fever, No sweats, No weakness Eyes: No worsening of vision ENT: No hearing loss Respiratory: No cough, No shortness of breath Cardiovascular: + claudication, No chest pain, No edema, No palpitations Abdomen: No constipation, No diarrhea, No nausea, No pain, No vomiting Musculoskeletal: + calf pain, No swelling Genitourinary - Male: No dysuria Neurologic: + numbness/tingling (LLE), No weakness Psychiatric: No depression symptoms Endocrine: No fatigue Hematologic / Lymphatic: No abnormal bleeding/bruising Integumentary: + color change (LLE pallor), No new/changing skin lesions Physical Exam Vital Signs Date Time Temp Pulse Resp B/P Pulse Ox O2 Delivery O2 Flow Rate FiO2 04/23/16 21:11 90 20 107/67 96 04/23/16 19:29 95 04/23/16 19:02 99 Nasal Cannula 3.0 04/23/16 19:00 36.6 100 16 92/49 89 Room Air General Appearance: WD/WN, no apparent distress, + obese, + pertinent finding ( Pt is laying comfortably in bed ) Head: normocephalic, atraumatic Eyes: normal inspection ENT: hearing grossly normal Neck: supple Respiratory/Chest: chest non-tender, lungs clear, normal breath sounds, no respiratory distress Cardiovascular: regular rate, rhythm, no edema, no murmur Abdomen/GI: normal bowel sounds, non tender, soft Back: + pertinent finding (dressing dry and intact over lumbar spine ) Extremities/Musculoskelatal: normal inspection, no pedal edema, + calf tenderness Neurologic/Psych: alert, normal mood/affect, oriented x 3 Skin: normal color, warm/dry Diagnostics Laboratory Results Results Past 24 Hours Test 04/23/16 19:35 04/23/16 19:38 Range/Units White Blood Count 11.44 4.8-10.8 K/uL Red Blood Count 3.90 4.7-6.1 M/uL Hemoglobin 12.1 14.0-18.0 g/dL Hematocrit 35.3 42-52 % Mean Corpuscular Volume 90.5 80-100 fL Mean Corpuscular Hemoglobin 31.0 25-34 pg Mean Corpuscular Hemoglobin Concent 34.3 32-36 g/dl Platelet Count 341 130-400 K/uL Mean Platelet Volume 9.1 7.4-10.4 fL Neutrophils (%) (Auto) 75.9 % Lymphocytes (%) (Auto) 11.6 % Monocytes (%) (Auto) 10.0 % Eosinophils (%) (Auto) 1.7 % Basophils (%) (Auto) 0.2 % Neutrophils # (Auto) 8.69 1.4-6.5 K/uL Lymphocytes # (Auto) 1.33 1.2-3.4 K/uL Monocytes # (Auto) 1.14 0.11-0.59 K/uL Eosinophils # (Auto) 0.19 0-0.5 K/uL Basophils # (Auto) 0.02 0-0.2 K/uL RDW Standard Deviation 44.8 36.4-46.3 fL RDW Coefficient of Variation 13.7 11.5-14.5 % Immature Granulocyte % (Auto) 0.6 % Immature Granulocyte # (Auto) 0.07 0.00-0.02 K/uL Prothrombin Time 11.0 9.0-12.0 SECONDS Prothromb Time International Ratio 1.0 0.9-1.1 Activated Partial Thromboplast Time 30.7 21.0-31.0 SECONDS Partial Thromboplastin Ratio 1.2 Sodium Level 132 136-145 mmol/L Potassium Level 3.7 3.5-5.1 mmol/L Chloride Level 92 98-107 mmol/L Carbon Dioxide Level 26 21-32 mmol/L Anion Gap 14.0 3-11 mmol/L Blood Urea Nitrogen 27 7-18 mg/dl Creatinine 1.10 0.60-1.40 mg/dl Est Creatinine Clear Calc Drug Dose 97.1 ml/min Estimated GFR () 79.5 Estimated GFR (Non- 68.6 BUN/Creatinine Ratio 24.2 10-20 Random Glucose 160 70-99 mg/dl Calcium Level 9.1 8.5-10.1 mg/dl Total Bilirubin 0.8 0.2-1 mg/dl Direct Bilirubin 0.3 0-0.2 mg/dl Aspartate Amino Transf (AST/SGOT) 33 15-37 U/L Alanine Aminotransferase (ALT/SGPT) 37 12-78 U/L Alkaline Phosphatase 67 45-117 U/L Total Creatine Kinase 167 39-308 U/L Creatine Kinase MB 3.7 0.5-3.6 ng/ml Creatine Kinase MB Ratio 2.2 0-3.0 Troponin I 3.470 0-0.045 ng/ml Total Protein 7.5 6.4-8.2 gm/dl Albumin 2.9 3.4-5.0 gm/dl Lipase 130 73-393 U/L Bedside Lactic Acid Venous 1.49 0.90-1.70 mmol/L Diagnostic Radiology LLE ARTERIAL US IMPRESSION: 1. Severe peripheral vascular disease is noted throughout the arteries of the left lower extremity. Only trace flow is seen throughout the arteries of the left lower extremity. 2. There is occlusion of the left profunda femoris artery and the left dorsalis pedis artery. LLE VENOUS US IMPRESSION: There is no sonographic evidence of deep venous thrombosis identified in the left lower extremity. CXR IMPRESSION: No acute cardiopulmonary abnormality. EKG EKG: NSR at 94 bpm with T wave inversion and mild ST depression in inferior leads with Q waves and nonspec T wave changes in anterior leads; new findings when compared to EKG from 04/17/16 Impression Assessment and Plan LLE ARTERIAL OCCLUSION IN SETTING OF SEVERE PAD pt presents with 6 weeks LLE claudication and numbness; h/o PAD on ASA -admit to telemetry -pt was hypoxic and tachy on arrival; vitals stable now -LLE arterial US + occlusion of left profunda femoris artery and left dorsalis pedis artery -LLE Venous US: negative for DVT -start heparin drip -cont ASA and statin -consult vascular surgery, Dr. Varner -monitor ELEVATED TROPONIN R/O ACS -RFs include obesity, DM 2, HTN, Dyslipidemia -EKG + T wave inversion and mild ST depression in inferior leads with Q wave and nonspec T wave changes in anterior lead;repeat EKG PRN chest pain and in AM -Initial troponin is 3.4; continue to monitor with serial cardiac enzymes q6h -obtain echo to r/o cardiac wall motion abnormalities -IV heparin started -cont ASA and statin -consult cardiology, Dr. Rockwell-pending input -pt denies any anginal sxs -continue to monitor HYPOXIA/TACHYCARDIA; R/O PE -O2 88% on room air; now saturating well on 3L O2 -obtain CT chest to r/o PE -IV heparin started already for confirmed arterial occlusion (see above) -monitor HYPONATREMIA -Na+ 132; likely due to dehydration -start gentle IVF -monitor with prp daily RECENT LUMBAR DECOMPRESSION/FUSION -s/p surgery 04/[address] Thomas -HgB stable at 12.1; cont to monitor daily -surgery comfortable with initiating anticoagulation -PT/OT -consult placed for ortho, Dr. Todd INSULIN-DEPENDENT DM 2 -recent A1C 7.0 -hold metformin and NovoLog -start ISS -monitor BSG AC HS HYPOTHYROIDISM -per records; not on hormone replacement -recent TSH WNL DEPRESSION -cont Celexa GOUT -cont allopurinol HTN -hypotensive on arrival; stable now -monitor DYSLIPIDEMIA -cont statin and fish oil DVT PROPHYLAXIS -heparin drip CODE STATUS -FULL CODE per discussion with patient upon admission DISPO Pt seen in collaboration with Dr. Mondragon. Please see his addendum for further details. Thanks! ATTENDING ADDENDUM care coordinated with NOEL Resendiz please refer to her notes for full details, I agree with her notes patient seen and examined, records reviewed by myself as well on exam, patient seen resting in bed, comfortable denies left leg pain when resting no chest pain, dyspnea, dizziness, nausea no other symptoms VS noted and reviewed oriented x 3, not in distress, speaks in sentences with no effort nor accessory muscle use normal rate, regular rhythm, no murmurs clear breath sounds bilaterally non distended, soft, nontender back: dressing in place, no bleeding no bipedal edema, calf erythema, warmth left lower leg: no cyanosis, poor pedal pulses, cool to touch, intact sensation , poor ROM no neuro deficits trop 3.4 CKMB 3.7 EKG: t wave inversions inferior leads, possible q wave anterior leads Leg Arterial US: occlusion of the profunda femoral artery, dorsalis pedis ASSESSMENT/PLAN> FEMORAL ARTERY, DORSALIS PEDIS ARTERY OCCLUSION - no cyanosis on exam this evening - discussed with Dr. Varner, will order Heparin IV drip overnight NPO post midnight posssible procedure in AM ELEVATED TROPONIN, INFERIOR LEAD AND ANTERIOR LEAD CHANGES - denies active chest pain - serial cardiac markers echo - on Heparin drip continue Aspirin, Statin Cardiology consulted RECENT LUMBAR SPINE DECOMPRESSION (04/16/16) - monitor while on Heparin Dr. Bess spoke with sandy Cho to have heparin drip ortho consulted other diagnoses and plan of care as per NOEL Resendiz's notes Arden Mondragon MD VTE Prophylaxis VTE Risk Assessment Done? Y/N: Yes Risk Level: High
[2016-04-23] MEDS ORDERED: PHARMACY GLYCEMIC MGMT CONSULT PRN (23:13)
[2016-04-24] VITALS (7 sets, daily range): BP systolic 92–126; BP diastolic 55–73; PULSE 82–90; TEMP 36.6–36.9; O2SAT 95–98; Ht 193 cm; Wt 138.2 kg
--- NOTE | 2016-04-24 01:07 | EMERGENCY ROOM VISIT NOTE ---
History Report prepared by Christin: Laury Carrington Under the Supervision of: Dr. Jere Bess D.O. First contact with patient: 18:59 Chief Complaint: OTHER COMPLAINT Stated Complaint: DECREASED SENSATION IN L LEG. History of Present Illness The patient is a 70 year old who presents to the Emergency Room via EMS with complaints of worsening left leg pain with onset 6 weeks ago. He rates his pain as a 7/10. Per EMS, the patient started to have leg pain 6-8 weeks ago. One week ago, the patient had back surgery at [facility]. Per EMS, today the patient had an ultrasound performed to evaluate his leg pain. It was determined that the patient may have arterial occlusions and he was then sent to the ED. The patient notes that laying still decreases his pain. He has been able to walk. He denies nausea, vomiting, fevers, chills. Source of History: patient, EMS Onset: 6 weeks ago Position: leg (left) Quality: other (left leg pain) Timing: worsening Modifying Factors (Relieving): other (laying still) Associated Symptoms: No chills, No fevers, No nausea, No vomiting Review of Systems See HPI for pertinent positives & negatives. A total of 10 systems reviewed and were otherwise negative. Past Medical & Surgical Medical Problems: (1) Arterial occlusion (2) Depression (3) DM2 (diabetes mellitus, type 2) (4) Elevated troponin (5) Gout (6) HLD (hyperlipidemia) (7) HTN (hypertension) (8) Hypothyroid (9) Lumbar stenosis with neurogenic claudication (10) PAD (peripheral artery disease) Surgical Problems: (1) History of back surgery Family History No pertinent family history Social History Smoking Status: Former Smoker Drug Use: none Housing Status: lives with family Occupation Status: retired Current/Historical Medications Scheduled Allopurinol (Zyloprim), 100 MG PO QPM Aspirin (Aspirin Ec), 81 MG PO QAM Atorvastatin (Lipitor), 10 MG PO QPM B-Complex Vitamins (Vitamin B Complex), 1 TAB PO QPM Canagliflozin (Invokana), 300 MG PO QAM Cholecalciferol (Vitamin D3), 1,000 MG PO QAM Citalopram Hydrobromide (Citalopram Hydrobromide), 20 MG PO QAM Fish Oil (Hodge-3), 1 CAP PO QAM Gabapentin (Neurontin), 300 MG PO QAM Gabapentin (Neurontin), 600 MG PO HS Hctz/Lisinopril (Lisinopril/Hctz 20/25 Mg), 1 TAB PO QAM Insulin Isophan/Regular (Novolin 70/30), 56 UNITS SC QAM Insulin Isophan/Regular (Novolin 70/30), 60 UNITS SC QPM Metformin Hcl (Glucophage Ext Rel), 1,000 MG PO BID Nortriptyline (Pamelor), 25 MG PO HS Ocuvite Preservision (Ocuvite Preservision), 1 TAB PO BID Oxymorphone Hcl (Opana Er (Crush Resistant), 10 MG PO BID Scheduled PRN Bisacodyl (Dulcolax), 1 SUPP MS DAILY PRN for Constipation Hydromorphone Hcl (Dilaudid), 2 MG PO Q4 PRN for SEVERE PAIN Magnesium Hydroxide (Milk of Magnesia), 30 ML PO DAILY PRN for Constipation Oxycodone/Acetaminophen 5MG/325MG (Percocet 5MG/325MG), 1-2 TABLETS PO Q4 PRN for Pain Sodium Phosphate/Biphosphate (Fleet Enema), 1 EA MS DAILY PRN for Constipation Allergies Coded Allergies: Penicillins (Verified Allergy, Unknown, "PATIENT PASSED OUT" OCCURED CHILD, 04/23/16) Physical Exam Vital Signs Date Time Temp Pulse Resp B/P Pulse Ox O2 Delivery O2 Flow Rate FiO2 04/23/16 21:11 90 20 107/67 96 04/23/16 19:29 95 04/23/16 19:02 99 Nasal Cannula 3.0 04/23/16 19:00 36.6 100 16 92/49 89 Room Air Physical Exam GENERAL: Patient is awake, alert, non-anxious appearing and overall appears comfortable. EYES: The conjunctivae are clear. The pupils are round and reactive. EARS, NOSE, MOUTH AND THROAT: The nose is without any evidence of any deformity. Mucous membranes are moist tongue is midline NECK: The neck is nontender and supple. RESPIRATORY: Normal respiratory effort is noted there is no evidence of wheezing rhonchi or rales CARDIOVASCULAR: Regular rate and rhythm noted there no murmurs rubs or gallops normal S1 normal S2 GASTROINTESTINAL: The abdomen is soft. Bowel sounds are present in all quadrants. Abdomen is nontender PELVIS: The Pelvis is stable. No tenderness to palpation is noted. BACK: No midline tenderness or or step-off noted range of motion in flexion extension as well as rotation no signs of muscle spasm noted. There was a dressing over the lower lumbar post-surgical site with no tenderness to palpation. MUSCULOSKELETAL/EXTREMITIES: There is no evidence of gross deformity full range of motion is noted in the hips and shoulders. Left lower extremity was cold, pulses were not palpable in the left foot, popliteal region and were significantly reduced in the groin. Ulcerations over the dorsum of the left toes. SKIN: There is no obvious evidence of any rash. There are no petechiae, pallor or cyanosis noted. NEUROLOGIC: Patient is awake alert and oriented x3. Medical Decision & Procedures ER Provider Diagnostic Interpretation: X ray results and stated below per my interpretation and radiology interpretation. Other radiology results per my review and radiologist interpretation: SINGLE VIEW CHEST CLINICAL HISTORY: Left leg pain. FINDINGS: 2 AP, portable, upright chest radiographs are compared to study dated 04/17/2016. The examination is degraded by portable technique, apical positioning, large body habitus, and patient rotation. The heart is top normal for projection. The pulmonary vasculature is noncongested. There is unchanged elevation of the right hemidiaphragm. Minimal bibasilar atelectasis is seen. No airspace consolidation or pleural effusion is identified. No pneumothorax is seen. The bony thorax is grossly intact. Degenerative changes noted throughout the thoracic spine. IMPRESSION: No acute cardiopulmonary abnormality. Electronically signed by: Marcus Chambers M.D. 04/23/2016 7:41 PM Dictated Date/Time: 04/23/2016 7:40 PM ULTRASOUND LEFT LOWER EXTREMITY VENOUS CLINICAL HISTORY: Left leg pain. COMPARISON STUDY: No priors. TECHNIQUE: Real-time, grayscale, and color Doppler sonography of the deep veins of the left lower extremity was performed from the inguinal crease to the calf. Compression and augmentation were utilized. FINDINGS: There is no sonographic evidence of deep venous thrombosis identified in the left lower extremity. The common femoral, superficial femoral, and popliteal veins are patent and normally compressible. The greater saphenous vein and the profunda femoris vein at the junction with the common femoral vein are clear. The visualized calf veins are patent. IMPRESSION: There is no sonographic evidence of deep venous thrombosis identified in the left lower extremity. Electronically signed by: Marcus Chambers M.D. 04/23/2016 9:08 PM Dictated Date/Time: 04/23/2016 9:07 PM ULTRASOUND LEFT LOWER EXTREMITY ARTERIAL CLINICAL HISTORY: Left leg pain. COMPARISON STUDY: No priors. TECHNIQUE: Real-time, grayscale, and color Doppler sonography of the left lower extremity arteries is performed from the inguinal crease to the foot. The patient declined ankle-brachial index assessment. FINDINGS: There is advanced atherosclerotic plaque and irregularity seen throughout the arteries of the left lower extremity. Only trace arterial flow is seen throughout the arteries of the left lower extremity. Velocities in the left common femoral artery measure up to 9 cm/s. The profundus femoris artery appears occluded. Trace flow is seen throughout the left superficial femoral artery with velocities measuring up to 44 cm/s. Monophasic flow is seen within the left popliteal artery with velocities measuring up to 20 cm/s. Monophasic flow is seen within the calf arteries which appear patent. There is no flow seen within the dorsalis pedis artery. IMPRESSION: 1. Severe peripheral vascular disease is noted throughout the arteries of the left lower extremity. Only trace flow is seen throughout the arteries of the left lower extremity. 2. There is occlusion of the left profunda femoris artery and the left dorsalis pedis artery. Dictated: 04/23/2016 9:08 PM Transcribed: 04/23/2016 9:23 PM [email or web address] Electronically signed by: Marcus Chambers M.D. 04/23/2016 9:53 PM Dictated Date/Time: 04/23/2016 9:08 PM Laboratory Results 04/23/16 19:35 Red Blood Count 3.90, Mean Corpuscular Volume 90.5, Mean Corpuscular Hemoglobin 31.0, Mean Corpuscular Hemoglobin Concent 34.3, Mean Platelet Volume 9.1, Neutrophils (%) (Auto) 75.9, Lymphocytes (%) (Auto) 11.6, Monocytes (%) (Auto) 10.0, Eosinophils (%) (Auto) 1.7, Basophils (%) (Auto) 0.2, Neutrophils # (Auto ) 8.69, Lymphocytes # (Auto) 1.33, Monocytes # (Auto) 1.14, Eosinophils # (Auto ) 0.19, Basophils # (Auto) 0.02 04/23/16 19:35 Test 04/23/16 19:35 04/23/16 19:38 White Blood Count 11.44 K/uL (4.8-10.8) Red Blood Count 3.90 M/uL (4.7-6.1) Hemoglobin 12.1 g/dL (14.0-18.0) Hematocrit 35.3 % (42-52) Mean Corpuscular Volume 90.5 fL (80-100) Mean Corpuscular Hemoglobin 31.0 pg (25-34) Mean Corpuscular Hemoglobin Concent 34.3 g/dl (32-36) Platelet Count 341 K/uL (130-400) Mean Platelet Volume 9.1 fL (7.4-10.4) Neutrophils (%) (Auto) 75.9 % Lymphocytes (%) (Auto) 11.6 % Monocytes (%) (Auto) 10.0 % Eosinophils (%) (Auto) 1.7 % Basophils (%) (Auto) 0.2 % Neutrophils # (Auto) 8.69 K/uL (1.4-6.5) Lymphocytes # (Auto) 1.33 K/uL (1.2-3.4) Monocytes # (Auto) 1.14 K/uL (0.11-0.59) Eosinophils # (Auto) 0.19 K/uL (0-0.5) Basophils # (Auto) 0.02 K/uL (0-0.2) RDW Standard Deviation 44.8 fL (36.4-46.3) RDW Coefficient of Variation 13.7 % (11.5-14.5) Immature Granulocyte % (Auto) 0.6 % Immature Granulocyte # (Auto) 0.07 K/uL (0.00-0.02) Prothrombin Time 11.0 SECONDS (9.0-12.0) Prothromb Time International Ratio 1.0 (0.9-1.1) Activated Partial Thromboplast Time 30.7 SECONDS (21.0-31.0) Partial Thromboplastin Ratio 1.2 Anion Gap 14.0 mmol/L (3-11) Est Creatinine Clear Calc Drug Dose 97.1 ml/min Estimated GFR () 79.5 Estimated GFR (Non- 68.6 BUN/Creatinine Ratio 24.2 (10-20) Calcium Level 9.1 mg/dl (8.5-10.1) Total Bilirubin 0.8 mg/dl (0.2-1) Direct Bilirubin 0.3 mg/dl (0-0.2) Aspartate Amino Transf (AST/SGOT) 33 U/L (15-37) Alanine Aminotransferase (ALT/SGPT) 37 U/L (12-78) Alkaline Phosphatase 67 U/L (45-117) Total Creatine Kinase 167 U/L (39-308) Total Protein 7.5 gm/dl (6.4-8.2) Albumin 2.9 gm/dl (3.4-5.0) Lipase 130 U/L (73-393) Bedside Lactic Acid Venous 1.49 mmol/L (0.90-1.70) Laboratory results per my review. Medications Administered Medications (Trade) Dose Ordered Sig/Jax Route Start Time Stop Time Status Last Admin Dose Admin Sodium Chloride (Nss 1000ml) 1,000 ml @ 999 mls/hr Q1H1M STAT IV 04/23/16 19:06 04/23/16 20:06 DC 04/23/16 19:41 999 MLS/HR Morphine Sulfate (MoRPHine SULFATE INJ) 4 mg Q15M PRN IV 04/23/16 21:30 05/07/16 21:29 04/23/16 22:41 4 MG Ondansetron HCl (Zofran Inj) 4 mg NOW STAT IV 04/23/16 21:28 04/23/16 21:29 DC 04/23/16 21:40 4 MG ECG Indication: weakness Rate (beats per minute): 94 Rhythm: normal sinus Findings: no ectopy, other (anterior and inferior ST segment noted) Comparison ECG Date: April 17, 2016 Change: Changes are new. ED Course 1899: The patient was evaluated in room B4. A complete history and physical examination were performed. 1905: NSS 1,000 ml @ 999 mls/hr IV 2052: I discussed the case with Dr. Mondragon ([facility]); he will further evaluate the patient. 2127: Zofran 4 mg IV 2129: Morphine Sulfate 4 mg IV 2136: I discussed the case with Darrell Bourgeois PA-C (Orthopedic Surgery) ; he felt that heparinization would be acceptable at this point. 2137: Heparin Sodium/ Dextrose 1 bolus IV Medical Decision Differential diagnosis: Etiologies such as DVT, musculoskeletal, infection, joint effusion, trauma, lymphedema, idiopathic, CHF, as well as others were entertained.. Nursing notes reviewed. The prison documentation was also reviewed. The patient is a 70-year-old male who presented to the emergency department for an evaluation of ongoing left lower extremity pain. The patient has been complaining of pain for approximately 6 weeks. He states that he was seen in our facility one week ago and had surgery on his back. The patient has no back pain area and he denies having any fevers. He had an outpatient ultrasound of his leg which did show arterial occlusion in the left lower extremity. He doesn' t a history of peripheral artery disease. The patient was treated with IV pain medication in the emergency department. He was also treated with IV heparin. He was also found have a troponin and abnormal EKG. I discussed the patient's case with the on-call [facility] hospitalist group. They've agreed to evaluate the patient in the emergency department for further management and disposition. I also discussed his case with the patient's primary spinal service. At this time they feel the patient would be cleared for heparin administration. I discussed the patient's laboratory and radiographic studies with him. Consults Time Called: 2051 Consulting Physician: Dr. Mondragon ([facility]) Returned Call: 2052 I discussed the case with Dr. Mondragon ([facility]); he will further evaluate the patient. Additional Consults: Time Called: 2129 Consulted Physician: Darrell Bourgeois PA-C (Orthopedic Surgery) Returned Call: 2137 Additional Comments: I discussed the case with Darrell Bourgeois PA-C (Orthopedic Surgery) ; he felt that heparinization would be acceptable at this point. Impression Primary Impression: Non-STEMI (non-ST elevated myocardial infarction) Additional Impressions: Abnormal EKG Arterial occlusion, lower extremity Critical Care I have personally spent greater than 45 minutes of critical care time in the direct management of this patient. This includes bedside care, interpretation of diagnostic studies, and testing, discussion with consultants, patient, and family members, and other required patient management activities. This 45 minutes is in excess of all separately billable procedures. Scribe Attestation The scribe's documentation has been prepared under my direction and personally reviewed by me in its entirety. I confirm that the note above accurately reflects all work, treatment, procedures, and medical decision making performed by me. Departure Information Dispostion Being Evaluated By Hospitalist Referrals Daren Rebollar M.D. (PCP) Patient Instructions My [facility] Problem Qualifiers
[2016-04-24] MEDS ORDERED: SODIUM CHLORIDE 0.9% 1000ML 1,000 ML IV SCH ×2 (01:30→11:00)
[2016-04-24] MEDS: INSULIN ASPART 100 UNITS/ML 3 ML PEN SC SCH ×3 (02:00→12:00)
[2016-04-24] MEDS ORDERED: INSULIN GLARGINE SOLOSTAR 100 UNITS/ML 3 ML PEN SC ONE (02:30)
[2016-04-24 05:34] LABS: PARTIAL THROMBOPLASTIN RATIO 1.3
[2016-04-24] MEDS ORDERED: HEPARIN IV BOLUS 9,000 UNIT in SYRINGE 0 ML IV ONE (06:30)
[2016-04-24 07:12] LABS: HEMATOCRIT 32.7 % (42-52); MEAN CELL VOLUME 90.8 fL (80-100); MEAN CORPUSCULAR HEMOGLOBIN 30.8 pg (25-34); MEAN CORPUSCULAR HGB CONC 33.9 g/dl (32-36); MEAN PLATELET VOLUME 8.8 fL (7.4-10.4); PLATELET COUNT 295 K/uL (130-400); WHITE BLOOD COUNT 9.87 K/uL (4.8-10.8)
[2016-04-24 07:43] LABS: ESTIMATED AVERAGE GLUCOSE 154 mg/dl; HA1C FLAG Normal (Normal)
[2016-04-24 07:57] LABS: BLOOD UREA NITROGEN 22 mg/dl (7-18); BUN/CREATININE RATIO 24.7 (10-20); CALCIUM 8.9 mg/dl (8.5-10.1); CARBON DIOXIDE 27 mmol/L (21-32); CHLORIDE 96 mmol/L (98-107); GLUCOSE 137 mg/dl (70-99); POTASSIUM 3.7 mmol/L (3.5-5.1); SODIUM 132 mmol/L (136-145)
[2016-04-24] MEDS ORDERED: PERFLUTREN LIPID MICROSPHERE (DEFINITY) IV ONE (08:21)
--- NOTE | 2016-04-24 08:50 | Orthopedic Progress Note ---
Orthopedic Progress Note Date of Service Apr 24, 2016. Subjective Additional Notes: Mr. Blanton is a 70 y/o 8 days s/p lumbar decompression and fusion. He was discharged following surgery on the to [facility] for continued rehab due to slow rehab progress. His complaints initiailly were low back and left leg pain x 6 weeks. Following surgery, pain resolved, but numbness and weakness of LLE persisted. He presented to the ER yesterday and was diagnosed with an arterial occlusion of the LLE. He was admitted to the medical service and we were consulted along with vascular surgery. Currently he is laying in bed, reporting no back pain. He continues to have weakness and numbness of the LLE, no symptoms in his RLE. He has minimal back pain attributed to post op pain. Incision is healing with no erythema or drainage. [place] remain in place. Medically, he appears stable and comfortable this AM. Objective Patient is alert and oriented x 3. Incision is clean and dry with no evidence of erythema or drainage. [place] remain in place. He moves with slight discomfort noted in his back. Lumbar motion is diminished. He exhibits weakness of his left ankle in all directional movements. He also has weakness of his toes. Sensation is also diminished from knee to his foot. Reflexes are absent. Date Time Temp Pulse Resp B/P Pulse Ox O2 Delivery O2 Flow Rate FiO2 04/24/16 08:22 36.9 85 18 112/70 96 04/24/16 04:00 Nasal Cannula 2.0 04/24/16 02:33 36.8 90 21 117/65 98 Nasal Cannula 2.0 04/24/16 00:05 36.7 88 16 106/69 97 Nasal Cannula 2.0 04/23/16 22:30 94 18 113/61 98 Nasal Cannula 2.0 04/23/16 21:11 90 20 107/67 96 04/23/16 19:29 95 04/23/16 19:02 99 Nasal Cannula 3.0 04/23/16 19:00 36.6 100 16 92/49 89 Room Air Laboratory Results 24 Hours: Test 04/23/16 19:35 04/24/16 06:55 White Blood Count 11.44 K/uL Red Blood Count 3.90 M/uL Hemoglobin 12.1 g/dL 11.1 g/dL Hematocrit 35.3 % 32.7 % Mean Corpuscular Volume 90.5 fL Mean Corpuscular Hemoglobin 31.0 pg Mean Corpuscular Hemoglobin Concent 34.3 g/dl Platelet Count 341 K/uL Mean Platelet Volume 9.1 fL Neutrophils (%) (Auto) 75.9 % Lymphocytes (%) (Auto) 11.6 % Monocytes (%) (Auto) 10.0 % Eosinophils (%) (Auto) 1.7 % Basophils (%) (Auto) 0.2 % Neutrophils # (Auto) 8.69 K/uL Lymphocytes # (Auto) 1.33 K/uL Monocytes # (Auto) 1.14 K/uL Eosinophils # (Auto) 0.19 K/uL Basophils # (Auto) 0.02 K/uL Prothromb Time International Ratio 1.0 Prothrombin Time 11.0 SECONDS Assessment & Plan Assessment: Arterial occlusion of LLE 8d s/p lumbar decompression and fusion Plan: Ok to anticoagulate, he is n/v stable Await vascular consultation Obtain lspine xrays Will follow
[2016-04-24] MEDS ORDERED: CITALOPRAM 20 MG TAB PO SCH (09:00)
[2016-04-24] MEDS ORDERED: GABAPENTIN 300 MG CAP PO SCH ×2 (09:00→21:00)
[2016-04-24] MEDS ORDERED: INSULIN HUMAN 70% NPH/30% REGULAR SC SCH ×2 (09:00→21:00)
[2016-04-24] MEDS ORDERED: ASPIRIN 81 MG ECTAB PO SCH (09:00)
[2016-04-24] MEDS ORDERED: LISINOPRIL/HCTZ 20/25MG TAB PO SCH (09:00)
[2016-04-24] MEDS ORDERED: CEROVITE ADV FORMULA TAB PO SCH (09:00)
[2016-04-24] MEDS ORDERED: OMEGA-3 (PURIFIED FISH OIL) 1 GM CAP PO SCH (09:00)
[2016-04-24] MEDS ORDERED: CHOLECALCIFEROL 1000 INTER.UNIT TAB PO SCH (09:00)
--- NOTE | 2016-04-24 09:17 | ECHOCARDIOGRAM REPORT ---
*NOTICE TO RECEIVING REPUBLICAN AGENCY This information is strictly Confidential and protected under [place] law. [place] law prohibits you from making any further disclosure of this information unless further disclosure is expressly permitted by the written consent of the person to whom it pertains or is authorized by law. A general authorization for the release of medical or other information is not sufficient for this purpose. Hospital accepts no responsibility if the information is made available to any other person, INCLUDING THE PATIENT. Interpretation Summary * Name: YEYO SINGH Study Date: 04/24/2016 07:56 AM BP: 117/65 mmHg * Patient Location: [facility] HR: 90 * : 1945 (M/d/yyyy) Gender: Male Height: 76 in * Age: 70 yrs Ethnicity: CA Weight: 302 lb * Ordering Physician: Elyssa Resendiz * Performed By: Yee Santiago RDCS * * Reason For Study: Chest pain * BSA: 2.6 m2 * -- Conclusions -- * Normal LV chamber size at the base with progressive dilation towards the apex. Along with progressive wall thinning. * Normal wall motion at the basal levels of all segments. Moderate to severe hypokinesis at the mid level and akinesis of all apical segments. (See attached wall motion score). EF 40-45%. * Grade I diastolic dysfunction. * Poorly visualized valvular structures with no significant valular stenosis or regurgitation by Doppler. * Aortic valve sclerosis moderate, without significant aortic valvular stenosis. Procedure Details * A complete two-dimensional transthoracic echocardiogram was performed (2D, M-mode, Doppler and color flow Doppler). * A contrast injection of Definity was performed to improve assessment of LV function. * Contrast was injected into an intravenous site in the right arm. * One vial of Definity ultrasound contrast was diluted in normal saline to a total volume of 10 ml. A total of '4' ml of solution was administered during imaging. * Lot # [id number] of Definity utilized for procedure. * Expiration date MAR 09. * The attending nurse who injected the contrast agent was Carmela Johnson RN. Left Ventricle * Normal LV chamber size at the base with progressive dilation towards the apex. Along with progressive wall thinning. * There is no thrombus. * Ejection Fraction = 40-45%. * Normal wall motion at the basal levels of all segments. Moderate to severe hypokinesis at the mid level and akinesis of all apical segments. (See attached wall motion score). Right Ventricle * The right ventricular cavity size is normal (basal dimension <4.2 cm in right ventricular apical 4-chamber view). * The right ventricular systolic function is normal as assessed by tricuspid annular plane systolic excursion (TAPSE) (normal >1.5 cm). Atria * The left atrial size is normal. * Right atrium not well visualized. Mitral Valve * The mitral valve is not well visualized. * There is no mitral valve stenosis. * There is no mitral regurgitation noted. Tricuspid Valve * The tricuspid valve is not well visualized. * There is no tricuspid stenosis. * No tricuspid regurgitation. Aortic Valve * The aortic valve is not well visualized. * Aortic valve sclerosis moderate, without significant aortic valvular stenosis. * There is no significant aortic regurgitation. Pulmonic Valve * The pulmonary valve is not well seen, but the Doppler examination is normal without significant regurgitation or stenosis. Great Vessels * The aortic root is not well visualized. Pericardium/Pleural * There is no pericardial effusion. Left Ventricular Diastolic Function * Grade I diastolic dysfunction, (abnormal relaxation pattern). MMode 2D Measurements and Calculations IVSd 1.1 cm LVIDd 4.6 cm LVIDs 3.2 cm LVPWd 1.4 cm IVS/LVPW 0.85 FS 30.9 % EDV(Teich) 99.6 ml ESV(Teich) 41.3 ml EF(Teich) 58.5 % EDV(cubed) 100.2 ml ESV(cubed) 33.1 ml EF(cubed) 67.0 % LV mass(C)d 221.1 grams LV mass(C)dI 83.8 grams/m\S\2 CO(Teich) 5.0 l/min CI(Teich) 1.9 l/min/m\S\2 SV(Teich) 58.3 ml SI(Teich) 22.1 ml/m\S\2 CO(cubed) 5.7 l/min CI(cubed) 2.2 l/min/m\S\2 SV(cubed) 67.1 ml SI(cubed) 25.4 ml/m\S\2 ACS 1.2 cm LVAd ap4 45.3 cm\S\2 LVLd ap4 9.0 cm EDV(MOD-sp4) 184.0 ml LVAs ap4 28.0 cm\S\2 LVLs ap4 8.7 cm ESV(MOD-sp4) 79.0 ml EF(MOD-sp4) 57.1 % LVAd ap2 28.4 cm\S\2 LVLd ap2 8.3 cm EDV(MOD-sp2) 80.0 ml LVAs ap2 15.6 cm\S\2 LVLs ap2 6.5 cm ESV(MOD-sp2) 32.0 ml EF(MOD-sp2) 60.0 % CO(MOD-sp4) 8.9 l/min CI(MOD-sp4) 3.4 l/min/m\S\2 SV(MOD-sp4) 105.0 ml SI(MOD-sp4) 39.8 ml/m\S\2 CO(MOD-sp2) 4.1 l/min CI(MOD-sp2) 1.5 l/min/m\S\2 SV(MOD-sp2) 48.0 ml SI(MOD-sp2) 18.2 ml/m\S\2 Doppler Measurements and Calculations MV E max eric 61.1 cm/sec MV A max eric 85.1 cm/sec MV E/A 0.72 MV dec time 0.32 sec Ao V2 max 203.6 cm/sec Ao max PG 16.6 mmHg Ao max PG (full) 11.8 mmHg Ao V2 mean 134.1 cm/sec Ao mean PG 8.4 mmHg Ao V2 VTI 30.2 cm LV V1 max PG 4.8 mmHg LV V1 max 109.4 cm/sec
--- NOTE | 2016-04-24 09:55 | Surgery Consultation ---
Consultation Date of Service Apr 24, 2016. Chief Complaint LLE numbness, claudication History of Present Illness The patient is a 70 year old male with hx of HTN, CAD, DMII, previous smoker, PAD s/p R comm fem endarterectomy in 2012 at [facility] per pt, seen in consultation today for LLE numbness and BL thigh claudication at less than 100ft. Pt states he has had some pain with ambulation in BL thighs for over a year, but developed numbness and tingling of L foot over past 6 weeks. Admits BL heel pain with ambulation as well. Denies RYDER, fever, chills, chest pain, SOB, abd pain, N/V, rest pain, nonhealing wounds, other complaints. 2 weeks post op from lumbar spine surgery. Vitals Vital Signs Past 12 Hours Date Time Temp Pulse Resp B/P Pulse Ox O2 Delivery O2 Flow Rate FiO2 04/24/16 08:22 36.9 85 18 112/70 96 04/24/16 04:00 Nasal Cannula 2.0 04/24/16 02:33 36.8 90 21 117/65 98 Nasal Cannula 2.0 04/24/16 00:05 36.7 88 16 106/69 97 Nasal Cannula 2.0 04/23/16 22:30 94 18 113/61 98 Nasal Cannula 2.0 Allergies Coded Allergies: Penicillins (Verified Allergy, Unknown, "PATIENT PASSED OUT" OCCURED CHILD, 04/23/16) Home Medications Scheduled Allopurinol (Zyloprim), 100 MG PO QPM Aspirin (Aspirin Ec), 81 MG PO QAM Atorvastatin (Lipitor), 10 MG PO QPM B-Complex Vitamins (Vitamin B Complex), 1 TAB PO QPM Canagliflozin (Invokana), 300 MG PO QAM Cholecalciferol (Vitamin D3), 1,000 MG PO QAM Citalopram Hydrobromide (Citalopram Hydrobromide), 20 MG PO QAM Fish Oil ([place]-3), 1 CAP PO QAM Gabapentin (Neurontin), 300 MG PO QAM Gabapentin (Neurontin), 600 MG PO HS Hctz/Lisinopril (Lisinopril/Hctz 20/25 Mg), 1 TAB PO QAM Insulin Isophan/Regular (Novolin 70/30), 56 UNITS SC QAM Insulin Isophan/Regular (Novolin 70/30), 60 UNITS SC QPM Metformin Hcl (Glucophage Ext Rel), 1,000 MG PO BID Nortriptyline (Pamelor), 25 MG PO HS Ocuvite Preservision (Ocuvite Preservision), 1 TAB PO BID Oxymorphone Hcl (Opana Er (Crush Resistant), 10 MG PO BID Scheduled PRN Bisacodyl (Dulcolax), 1 SUPP MS DAILY PRN for Constipation Hydromorphone Hcl (Dilaudid), 2 MG PO Q4 PRN for SEVERE PAIN Magnesium Hydroxide (Milk of Magnesia), 30 ML PO DAILY PRN for Constipation Oxycodone/Acetaminophen 5MG/325MG (Percocet 5MG/325MG), 1-2 TABLETS PO Q4 PRN for Pain Sodium Phosphate/Biphosphate (Fleet Enema), 1 EA MS DAILY PRN for Constipation Problem List Medical Problems: (1) Arterial occlusion (2) Depression (3) DM2 (diabetes mellitus, type 2) (4) Elevated troponin (5) Gout (6) HLD (hyperlipidemia) (7) HTN (hypertension) (8) Hypothyroid (9) Lumbar stenosis with neurogenic claudication (10) PAD (peripheral artery disease) Surgical Problems: (1) History of back surgery Surgical / Medical History Hx Cardiac Surgery: No Hx Abdominal Surgery: No Hx Cancer Surgery: No Hx Thoracic Surgery: No Hx Orthopedic: Yes (recent back surgery, fusion, 04/16) Hx Urinary Tract Surgery: No HX Other Surgery: Yes (hx femoral artery surgery for occlusion/clot) Past Medical/Surgical History: Diabetes, Heart Disease, High Cholesterol, Hypertension Family History No pertinent family history + HTN, DMII Social History Smoking Status: Former Smoker Hx Tobacco Use In Past Year?: No Hx Alcohol Use - Type & Amnt: No Hx Substance Use -Type & Amnt: No Review of Systems Constitutional: + malaise, No chills, No fever Skin: No change in color Eyes: No visual changes ENMT: No sore throat Respiratory: No SCOTT, No cough, No hemoptysis, No short of breath Cardiovascular: + intermittent claudication, No chest pain, No edema, No palpitations, No syncope Gastrointestinal: No abdominal pain, No nausea, No vomiting Musculoskeletal: + back pain (chronic) Neurologic: + dizziness (single episode, resolved), + numbness, + tingling, No headache, No lethargy Physical Exam Constitutional: General Apperance: well-nourished, well-developed, obese Level of Distress: NAD, chronically ill Psychiatric: Mental Status: active & alert, normal mood, normal affect Orientation: oriented except where noted, to time, to place, to person Memory: recent memory normal, remote memory normal Head: normocephalic, atraumatic Eyes: EOM: EOMI ENMT: normal ENT inspection, hearing grossly normal Neck: supple, trachea midline Lungs: Respiratory effort: no dyspnea Auscultation: no rales/crackles, no rhonchi, decreased breath sounds, expiratory wheezing Cardiovascular: Apical Impulse: not displaced Heart Auscultation: RRR, no rubs, no gallops Peripheral Pulses: Pulses: full and equal, in all extremities except if noted Bruits: none appreciated Carotid Pulse: normal on the left, normal on the right Brachial Pulses: normal on the left, normal on the right Radial Pulse: normal on the left, normal on the right Femoral Pulse: normal on the right, absent on the left Posterior Tibialis Pulse: absent on the left, doppler (Right only) Dorsalis Pedis Pulse: absent on the left, doppler (Right only), pertinent finding (L foot delayed cap refill at 6 sec. LLE + peroneal doppler pulse) Abdomen: Bowel Sounds: normal Inspection & Palpation: soft, non-distended, no tenderness, guarding & rebound, no masses Musculoskeletal: normal strength (5/5 throughout), normal tone Extremities: Upper Right: no cyanosis, no edema, no varicosities Upper Left: no cyanosis, no edema, no varicosities Lower Right: no cyanosis, no edema, no varicosities Lower Left: no cyanosis, no varicosities, edema (trace), pertinent finding ( dry abrasions to dorsal proximal toes. Cool to touch, brisker cap refill to 4th and 5th toes.) Neurologic: Cranial Nerves: grossly intact Sensation: abnormal Assessment and Plan ASSESSMENT and PLAN: Severe PAD/arterial occlusion LLE with numbness and claudication Pt discussed with Dr Varner. Recommends CTA eval before forming surgical plan, d/t likely aortoiliac disease. Will discuss further with all involved after CTA.
[2016-04-24] MEDS: HYDROmorphone INJ 1 MG/ML SYR IV PRN ×3 (09:57→20:47)
--- NOTE | 2016-04-24 10:06 | Pharmacy Progress Note ---
Glycemic Control Intl Consult Date of Service Apr 24, 2016. Scope Glycemic Pharmacist consulted by Dr Mondragon on 04/23/16 @2300 for glycemic control and to write orders per [facility] inpatient glycemic control protocol Objective Weight (Kilograms): 138.200 Accuchecks BSG (last 24hrs): Test 04/23/16 19:35 04/24/16 02:59 04/24/16 06:49 04/24/16 06:55 Random Glucose 160 mg/dl (70-99) 137 mg/dl (70-99) Bedside Glucose 162 mg/dl (70-99) 146 mg/dl (70-99) Laboratory Data (last 24hrs) Test 04/23/16 19:35 04/24/16 05:00 04/24/16 06:55 Anion Gap 14.0 mmol/L 9.0 mmol/L BUN/Creatinine Ratio 24.2 24.7 Blood Urea Nitrogen 27 mg/dl 22 mg/dl Creatinine 1.10 mg/dl 0.90 mg/dl Potassium Level 3.7 mmol/L 3.7 mmol/L Sodium Level 132 mmol/L 132 mmol/L White Blood Count 11.44 K/uL 9.87 K/uL Red Blood Count 3.90 M/uL Hemoglobin 12.1 g/dL Hematocrit 35.3 % Mean Corpuscular Volume 90.5 fL Mean Corpuscular Hemoglobin 31.0 pg Mean Corpuscular Hemoglobin Concent 34.3 g/dl Platelet Count 341 K/uL Mean Platelet Volume 9.1 fL Neutrophils (%) (Auto) 75.9 % Lymphocytes (%) (Auto) 11.6 % Monocytes (%) (Auto) 10.0 % Eosinophils (%) (Auto) 1.7 % Basophils (%) (Auto) 0.2 % Neutrophils # (Auto) 8.69 K/uL Lymphocytes # (Auto) 1.33 K/uL Monocytes # (Auto) 1.14 K/uL Eosinophils # (Auto) 0.19 K/uL Basophils # (Auto) 0.02 K/uL Hemoglobin A1c 7.0 % HbA1c Test 04/24/16 05:00 Hemoglobin A1c 7.0 % (4.5-5.6) H Recent Pertinent Medications Outpatient Anti-diabetic Regimen: * Novolin 70/30 56 u QAM + 60 u QPM * Metformin ER 1000 mg PO BIDM The patient is currently receiving: * Basal insulin: Lantus 20 units X 1 around 0300 this AM * Correctional Insulin: Novolog Correction per scale ACHS Goal Range: Low 140 mg/dL - High 180 mg/dL Correction Factor: 20 mg/dL/unit * Prandial insulin: Per carb ratio of 1 unit per 8 grams CHO consumed * Oral Agents: on hold Risk Factors for Insulin Resistance: * IVF * Diet Assessment & Plan ASSESSMENT: * 70 yo T2D M admitted with arterial occlusion s/p lumbar decompression surgery 8 days ago * A1c from this AM 7.0% indicative of good glycemic control as outpatient * Controlled on Metformin + Novolin 70/30 at home * Overnight pharmacist held all home medications and changed patient to basal/ bolus regimen * Pt received Lantus 20 units X 1 (reduced dosing given for NPO status) * Novolog was started around 0200 as well but patient has received 0 units up to this point * Continue reduced Lantus dose for NPO status - likely will need adjusted tomorrow if diet advance * Patient's home basal dose would be equivalent to ~80 units of Lantus- therefor by giving 40 units total per day (20 units BID) I am cutting it in half for NPO status * ADA & AACE recommend a goal blood sugar range 140-180 mg/dl for the majority of critically ill & non-critically ill patients. However, more stringent targets may be selected in individual cases. PLAN FOR INPATIENT GLYCEMIC CONTROL: * Holding outpatient oral diabetes medications * Continue Lantus 20 units BID * Give 10 units for BSG <100 mg/dL * Correctional Insulin with NOVOLOG per scale ACHS or Q6hrs while NPO * Goal Range: Low 140 mg/dL - High 180 mg/dL * Correction Factor: 20 mg/dL/unit * Nutritional / Prandial insulin per carb ratio of 1 unit per 8 grams CHO consumed * A1c current- will add to D/C instructions * Please note that the plan above was derived based on current level of insulin resistance and hospital stress. These recommendations are appropriate for inpatient admission only. Plan of care upon discharge will need to be reassessed to avoid potential outpatient hypo/hyperglycemia. Thank you.
[2016-04-24] MEDS ORDERED: OPTIRAY 320 IV PRN (10:15)
[2016-04-24 10:19] LABS: ACT87 HEP C IGG SCREEN** NEG (NEG)
[2016-04-24] MEDS ORDERED: METOPROLOL TARTRATE 25 MG TAB PO ONE (10:45)
--- NOTE | 2016-04-24 11:40 | CARDIOLOGY CONSULTATION ---
DATE OF CONSULTATION: 04/24/2016 DATE OF CONSULTATION: 04/24/2016. The patient seen and examined. Chart, medications, telemetry reviewed. REFERRING: Dr. Mobley. INDICATIONS: Cold foot, elevated troponin. HISTORY OF PRESENT ILLNESS: The patient is a 70-year-old male, somewhat vague historian. His history is notable for chronic back and leg pain, having been recently hospitalized at [facility] on 04/16/2016 and underwent lumbar laminectomy and fusion on 04/16/2016. Operative course was uneventful per reports and he was discharged to rehab facility for postoperative care. His history is notable for chronic back and leg pain of months in duration by his own description with pain in the left foot and leg dating back to greater than 6 weeks prior. While at rehab hospital he was returning from an exercise when he became acutely lightheaded and felt like he was nearly going to pass out. He had suffered a traumatic injury to the left foot while there. Ultrasound of the leg demonstrated poor blood flow to the lower extremity and he was transferred due to complaints, tachycardia and hypertension as well as mild hypoxia for further evaluation. The patient denies any prior history of cardiac disease. Notes no history of chest pains, tachypalpitations, syncope or near syncope. Notes no exertional dyspnea, though feels activities have been predominantly limited due to leg pain and foot pain for months in duration. Notes no history of rheumatic fever, scarlet fever or heart murmur. Notes no recent fevers, chills or unexplained infections. Notes no melena or hematochezia. Has had moderate pain though pain has been controlled. Notes no hypertensive exacerbations. He had undergone prior stress echocardiography several years ago and prior to this surgery per patient he was evaluated by Dr. Bingham at [facility] and underwent stress nuclear imaging which was negative for ischemia per report though data fully not available. Last night on ER presentation troponins were elevated. He was begun on IV heparin for both occlusive disease of the left foot and elevated troponins. He is currently pain free. From a cardiac standpoint notes no chest pain or shortness of breath. Continues to have low grade ache in the left foot. Back incision is without significant discomfort. REVIEW OF SYSTEMS: Otherwise negative. ALLERGIES: PENICILLIN. MEDICATIONS PRIOR TO HOSPITALIZATION: Allopurinol 100 mg p.o. daily, aspirin 81 mg p.o. daily, atorvastatin 10 mg p.o. daily, vitamin B complex 1 tablet q. day, Dulcolax p.r.n., Invokana 300 mg q.a.m., cholecalciferol 1000 mg p.o. q.a.m., citalopram 20 mg q.a.m., fish oil omega-3 one capsule q.a.m., Neurontin 300 mg q.a.m. and 600 mg q.p.m., lisinopril/hydrochlorothiazide 20/25, Dilaudid p.r.n. pain, insulin 70/30 56 a.m., 60 p.m., metformin 1000 mg b.i.d., Pamelor 25 mg at bedtime, Ocuvite 1 tablet b.i.d., pain medications with Percocet and Opana. PAST SURGICAL HISTORY: As described notable for lumbar laminectomy and remote tonsillectomy. FAMILY HISTORY: Positive for diabetes and heart disease. SOCIAL HISTORY: The patient resides in [place]. He is a retired power truck driver. He is a nonsmoker, nondrinker. PHYSICAL EXAMINATION: VITAL SIGNS: Heart rate is 85, blood pressure is 112/70. HEAD, EYES, EARS, NOSE, AND THROAT EXAMINATION: Normocephalic, atraumatic. Nares without discharge. Throat was clear. NECK: Supple without thyromegaly, lymphadenopathy, JVD or bruit. LUNGS: Clear with mildly diminished breath sounds. CARDIOVASCULAR EXAMINATION: Regular with a grade 1-2/6 systolic murmur. There is no diastolic murmur. ABDOMEN: Soft, nontender. EXTREMITIES: Without cyanosis or clubbing. Back reveals healing surgical incision with omi in place. No surrounding erythema. Extremities reveal right femoral bruit, poor pulses on the left with cool foot and eschar across the dorsal aspects of all toes, mild cyanosis of the distal extremity. LABORATORY DATA: White cell count is 9.8, hemoglobin is 11.1, hematocrit is 32.7. Sodium is 132, potassium is 3.7, chloride is 96, bicarbonate 25, BUN is 22, creatinine 0.9. Troponin on presentation was 3.4, this morning has trended down to 2.9. EKGs during hospital operative procedure in March revealed sinus tachycardia with no ST segment abnormalities. EKG last evening on presentation revealed low voltage QRS with Q-waves consistent with septal infarct. Echocardiogram this morning demonstrates wall motion abnormality with thinning and expansion of the mid and apical levels, EF 40-45%, aortic sclerosis without significant stenosis. Study of fair technical quality only. IMPRESSION: A 70-year-old male with complex history with recent lumbar surgery, history of ongoing leg pain for multiple months' duration noted after an episode of dizziness and lightheadedness at rehab postoperatively to have cool and painful left foot. Initial Doppler analysis suggests evidence of significant vascular occlusion. Cardiac enzymes are also elevated with abnormal EKG. Echocardiogram reflecting either prior old myocardial infarction versus possible catecholamine/Takotsubo mediated cardiomyopathy. The patient has multiple cardiac risk factors. PLAN: We will add low dose beta jaime initially for heart rate and blood pressure management. CT scan via vascular surgery has been ordered to assess degree of vascular occlusive disease. We will obtain records regarding preoperative assessment from [facility]. Will follow closely. He is appropriately anticoagulated with heparin. Examination suggests diffuse vascular disease rather than acute thromboembolic disease, though this may represent a concern given apical wall motion abnormality on echocardiogram. We will follow patient in the hospital as records return.
--- NOTE | 2016-04-24 11:56 | Progress Note ---
Internal Med Progress Note Date of Service: Apr 24, 2016. Provider Documentation: SUBJECTIVE: Patient is seen and examined at bedside. Patient complains of left LE numbness, Left foot pain and feels tired. Denies any chest pain, SOB, palpitations. OBJECTIVE: Vital Signs-as noted below Physical Exam: General Appearance:Moderately built and nourished, Obese, no apparent distress Head: normocephalic, Atraumatic Eyes: normal inspection, EOMI, PERRLA Neck: supple, Trachea midline Respiratory/Chest: Normal breath sounds, CTA, No accessory muscle use Cardiovascular: S1, S2, No murmur Abdomen/GI:Soft, Non tender, Bowel sounds present Back: dressing in place Extremities/Musculoskelatal:normal inspection, no edema, poor pedal pulses, sensation intact Neurologic/Psych:AAOX3, grossly no focal neurological deficits Skin: normal color, warm Lab data as noted below. ASSESSMENT & PLAN: LLE ARTERIAL OCCLUSION/SEVERE PAD Patient presented with 6 weeks LLE claudication and numbness; h/o PAD on ASA LLE arterial US + occlusion of left profunda femoris artery and left dorsalis pedis artery LLE Venous US: negative for DVT Continue IV heparin, ASA, statins Planned for CTA :likely aortoiliac disease Vascular surgery, Dr. Varner on board Continue to monitor ELEVATED TROPONIN R/O ACS Risk Factors: obesity, DM 2, HTN, Dyslipidemia Patient denies any chest pain Troponin trending down EKG: t wave inversions inferior leads ECHO: Normal wall motion at the basal levels of all segments. Moderate to severe hypokinesis at the mid level and akinesis of all apical segments Continue IV heparin, ASA and statin. BB added cardiology, Dr. Rockwell on board ACUTE HYPOXIC RESPIRATORY FAILURE O2 88% on room air; now saturating well on 3L O2 at time of admission Denies any SOB, chest pain CTA: Negative for PE Currently saturating 96% on 2lNC HYPONATREMIA Na: 132 Continue IVF fluids Monitor sodium levels RECENT LUMBAR DECOMPRESSION/FUSION s/p surgery 04/[address] [facility] on board PT/OT INSULIN-DEPENDENT DM 2 Last A1C 7.0 Hold metformin and NovoLog Continue ISS Accu checks HYPOTHYROIDISM per records; not on hormone replacement recent TSH WNL DEPRESSION continue Celexa GOUT continue allopurinol HTN Well controlled Continue to monitor DYSLIPIDEMIA continue statin and fish oil DVT PROPHYLAXIS On heparin ggt CODE STATUS FULL CODE Vital Signs: Date Time Temp Pulse Resp B/P Pulse Ox O2 Delivery O2 Flow Rate FiO2 04/24/16 11:45 36.7 87 20 92/55 95 2.0 04/24/16 08:22 36.9 85 18 112/70 96 04/24/16 08:00 Nasal Cannula 2.0 04/24/16 04:00 Nasal Cannula 2.0 04/24/16 02:33 36.8 90 21 117/65 98 Nasal Cannula 2.0 04/24/16 00:05 36.7 88 16 106/69 97 Nasal Cannula 2.0 04/23/16 22:30 94 18 113/61 98 Nasal Cannula 2.0 04/23/16 21:11 90 20 107/67 96 04/23/16 19:29 95 04/23/16 19:02 99 Nasal Cannula 3.0 04/23/16 19:00 36.6 100 16 92/49 89 Room Air Lab Results: Results Past 24 Hours Test 04/23/16 19:35 04/23/16 19:38 04/24/16 01:00 04/24/16 01:05 Range/Units White Blood Count 11.44 4.8-10.8 K/uL Red Blood Count 3.90 4.7-6.1 M/uL Hemoglobin 12.1 14.0-18.0 g/dL Hematocrit 35.3 42-52 % Mean Corpuscular Volume 90.5 80-100 fL Mean Corpuscular Hemoglobin 31.0 25-34 pg Mean Corpuscular Hemoglobin Concent 34.3 32-36 g/dl Platelet Count 341 130-400 K/uL Mean Platelet Volume 9.1 7.4-10.4 fL Neutrophils (%) (Auto) 75.9 % Lymphocytes (%) (Auto) 11.6 % Monocytes (%) (Auto) 10.0 % Eosinophils (%) (Auto) 1.7 % Basophils (%) (Auto) 0.2 % Neutrophils # (Auto) 8.69 1.4-6.5 K/uL Lymphocytes # (Auto) 1.33 1.2-3.4 K/uL Monocytes # (Auto) 1.14 0.11-0.59 K/uL Eosinophils # (Auto) 0.19 0-0.5 K/uL Basophils # (Auto) 0.02 0-0.2 K/uL RDW Standard Deviation 44.8 36.4-46.3 fL RDW Coefficient of Variation 13.7 11.5-14.5 % Immature Granulocyte % (Auto) 0.6 % Immature Granulocyte # (Auto) 0.07 0.00-0.02 K/uL Prothrombin Time 11.0 9.0-12.0 SECONDS Prothromb Time International Ratio 1.0 0.9-1.1 Activated Partial Thromboplast Time 30.7 21.0-31.0 SECONDS Partial Thromboplastin Ratio 1.2 Sodium Level 132 136-145 mmol/L Potassium Level 3.7 3.5-5.1 mmol/L Chloride Level 92 98-107 mmol/L Carbon Dioxide Level 26 21-32 mmol/L Anion Gap 14.0 3-11 mmol/L Blood Urea Nitrogen 27 7-18 mg/dl Creatinine 1.10 0.60-1.40 mg/dl Est Creatinine Clear Calc Drug Dose 97.1 ml/min Estimated GFR () 79.5 Estimated GFR (Non- 68.6 BUN/Creatinine Ratio 24.2 10-20 Random Glucose 160 70-99 mg/dl Calcium Level 9.1 8.5-10.1 mg/dl Total Bilirubin 0.8 0.2-1 mg/dl Direct Bilirubin 0.3 0-0.2 mg/dl Aspartate Amino Transf (AST/SGOT) 33 15-37 U/L Alanine Aminotransferase (ALT/SGPT) 37 12-78 U/L Alkaline Phosphatase 67 45-117 U/L Total Creatine Kinase 167 39-308 U/L Creatine Kinase MB 3.7 3.6 0.5-3.6 ng/ml Creatine Kinase MB Ratio 2.2 0-3.0 Troponin I 3.470 2.950 0-0.045 ng/ml Total Protein 7.5 6.4-8.2 gm/dl Albumin 2.9 3.4-5.0 gm/dl Lipase 130 73-393 U/L Bedside Lactic Acid Venous 1.49 0.90-1.70 mmol/L Test 04/24/16 02:59 04/24/16 05:00 04/24/16 06:49 04/24/16 06:55 Range/Units Bedside Glucose 162 146 70-99 mg/dl Activated Partial Thromboplast Time 34.2 21.0-31.0 SECONDS Partial Thromboplastin Ratio 1.3 Estimated Average Glucose 154 mg/dl Hemoglobin A1c 7.0 4.5-5.6 % Hepatitis C Antibody Screen NEG NEG Hepatitis C Antibody NEG NEG White Blood Count 9.87 4.8-10.8 K/uL Red Blood Count 3.60 4.7-6.1 M/uL Hemoglobin 11.1 14.0-18.0 g/dL Hematocrit 32.7 42-52 % Mean Corpuscular Volume 90.8 80-100 fL Mean Corpuscular Hemoglobin 30.8 25-34 pg Mean Corpuscular Hemoglobin Concent 33.9 32-36 g/dl RDW Standard Deviation 45.6 36.4-46.3 fL RDW Coefficient of Variation 13.7 11.5-14.5 % Platelet Count 295 130-400 K/uL Mean Platelet Volume 8.8 7.4-10.4 fL Sodium Level 132 136-145 mmol/L Potassium Level 3.7 3.5-5.1 mmol/L Chloride Level 96 98-107 mmol/L Carbon Dioxide Level 27 21-32 mmol/L Anion Gap 9.0 3-11 mmol/L Blood Urea Nitrogen 22 7-18 mg/dl Creatinine 0.90 0.60-1.40 mg/dl Est Creatinine Clear Calc Drug Dose 119.3 ml/min Estimated GFR () 101.4 Estimated GFR (Non- 87.5 BUN/Creatinine Ratio 24.7 10-20 Random Glucose 137 70-99 mg/dl Calcium Level 8.9 8.5-10.1 mg/dl Creatine Kinase MB 2.7 0.5-3.6 ng/ml Troponin I 2.940 0-0.045 ng/ml Test 04/24/16 07:00 04/24/16 10:57 04/24/16 11:45 Range/Units Creatine Kinase MB Ratio 0-3.0 Bedside Glucose 165 70-99 mg/dl Microbiology Results 04/24/16 MRSA DNA Surveillance Screen, Received Pending
[2016-04-24 12:20] LABS: PARTIAL THROMBOPLASTIN RATIO 2.6
--- NOTE | 2016-04-24 14:01 | DIAGNOSTIC IMAGING REPORT ---
CT angiogram abdomen and pelvis and legs ANGIO AA LAUREL LE RUNOFF CLINICAL HISTORY: Claudication pain TECHNIQUE: Transaxial acquisition with multi axial reformatted images COMPARISON STUDY: None FINDINGS: 1. Moderate scattered atherosclerotic change abdominal aorta. Origin of the celiac axis demonstrates a 3 cm length of moderately calcified plaque. Estimated narrowing is approximately 50-70%. 2. The superior mesenteric artery shows dense calcification of its proximal several centimeters. This narrowing measures approximately 90% 3. Moderate atherosclerotic change of the origin of the iliac vasculature is present. Renal arteries are relatively small in terms of caliber. There is a 50-60% narrowing origin of the right renal artery with a 40-50 present narrowing origin left renal artery. 4. Right pelvic iliac vasculature demonstrates moderate atherosclerotic change with no significant stenotic process. The left pelvic iliac vasculature demonstrates moderate atherosclerotic change. Most there is a 50 present narrowing of the mid left external iliac artery. There is a high-grade intercritical stenosis at the confluence with the left common femoral artery with high-grade stenotic changes involving the proximal left superficial femoral artery as well as left profunda artery. 5. There is a 50-70% stenosis origin of the right profunda artery. The right superficial femoral artery shows multifocal areas of high-grade stenotic change. These multifocal areas of subtle significant stenotic change extending to the popliteal artery. Similar findings with multilevel foci of high-grade stenotic changes of the left superficial femoral artery and profunda artery are also noted. 6. The right popliteal artery shows multifocal areas of severe narrowing. There is minimal flow through the narrowed 3 vessel runoff changes of the right lower leg. Multifocal areas of high-grade stenotic change are present dampened flow characteristics. Similar findings are seen in the left again with multilevel foci of arterial occlusive change. 7. There appears to be essentially complete occlusion of the right anterior tibial artery on the right lower leg. Near complete occlusion is seen involving the anterior tibial artery and left lower leg. IMPRESSION: 1. Severe multilevel atherosclerotic narrowing of the bulk of the arterial structures of the abdomen pelvis and legs bilaterally. 2. 90% stenosis several proximal centimeters of the superior mesenteric artery. 3. 50-70% narrowing origin of the celiac axis. 4. High-grade and or near complete occlusion origin left superficial femoral artery and left profunda femoris artery. 5. 5070% stenosis origin right profunda artery. 6. Multifocal areas of critical and/or near critical stenotic change of the right as well as left superficial femoral arteries as well as popliteal arteries. 7. Multifocal areas of significant arterial occlusive change involving the runoff vessels of both lower legs with occlusion and/or near occlusion of the right and to a lesser extent left anterior tibial arteries Electronically signed by: Seth Valdes M.D. 04/24/2016 2:00 PM Dictated Date/Time: 04/24/2016 1:50 PM
--- NOTE | 2016-04-24 14:21 | DIAGNOSTIC IMAGING REPORT ---
LUMBAR SPINE 2 OR 3 VIEWS CLINICAL HISTORY: 8d s/p lumbar fusion: standing ap/lat view COMPARISON STUDY: Lumbar spine 04/16/2016. FINDINGS: Posterior decompression and fusion from L2 through S1 with pedicle screws and rods. The hardware appears intact. Midline lumbar skin omi due to the recent postoperative change. Contrast within the kidneys from the recent CT. No acute fractures within the lumbar spine. Mild disc space narrowing within the thoracolumbar junction. IMPRESSION: Posterior decompression and fusion from L2 through S1 with pedicle screws and rods. The hardware appears intact. No acute fractures. Electronically signed by: Radu Epstein M.D. 04/24/2016 2:20 PM Dictated Date/Time: 04/24/2016 2:11 PM
[2016-04-24] MEDS: METOPROLOL TARTRATE 25 MG TAB PO SCH ×2 (15:07→17:11)
[2016-04-24] MEDS ORDERED: LPR25 PO (16:22)
[2016-04-24] MEDS ORDERED: NTRSLP4 SL (16:22)
--- NOTE | 2016-04-24 16:26 | Discharge Instructions ---
Discharge Instructions Admission Reason for Admission: Arterial Occlusion, Elevated Troponin Discharge Discharge Diagnosis / Problem: Severe PAD, NSTEMI Discharge Goals Goal(s): Decrease discomfort, Improve function Activity Recommendations Activity Level: Bedrest . Additional Information Patient informed of condition: Yes Advance Directives: Yes DNR: No Level of Care: Other ([facility]) Communicable Disease: No Prognosis: Other (Transfer to [place] for further care) Instructions / Follow-Up Instructions / Follow-Up Follow up with at [facility] Follow up with Family doctor after discharge From [place] Current Hospital Diet Patient's current hospital diet: Diabetes Type 2 Diet, AHA Diet (Heart Healthy) Discharge Diet Recommended Diet: AHA Diet (Heart Healthy) Pending Studies Studies pending at discharge: no Physician Orders On Transfer IV Therapy: IV Heparin IV NSS Additional Orders: Please refer to Paper Med Rec for accurate medications Laboratory Results Hemoglobin A1c Test 04/24/16 05:00 Range/Units Estimated Average Glucose 154 mg/dl Hemoglobin A1c 7.0 H 4.5-5.6 % Medical Emergencies . Who to Call and When: Medical Emergencies: If at any time you feel your situation is an emergency, please call 911 immediately. . Non-Emergent Contact Non-Emergency issues call your: Primary Care Provider, Finger Grip Machine Operator . . "Provider Documentation" section prepared by Albert Mobley. Core Measure Problem Core Measures: AMI AMI Core Measures Reason no ASA as I/P: Treatment provided - N/A Reason no ASA at D/C: Treatment provided - N/A Reason no statin as I/P: Treatment provided - N/A Reason no statin at D/C: Treatment provided - N/A
[2016-04-24] MEDS ORDERED: NURSING VERBAL MED ORDER ONE (16:45)
--- NOTE | 2016-04-24 19:32 | Discharge Summary ---
Discharge Summary Admission Date: Apr 23, 2016 at 21:42 Discharge Date: Apr 24, 2016 Discharge Disposition: Acute care facility ([facility]) Principal Diagnosis: Severe PAD, NSTEMI Procedures: Venous Duplex: There is no sonographic evidence of deep venous thrombosis identified in the left lower extremity. CXR: No acute cardiopulmonary abnormality Left LE Arterial Doppler: 1. Severe peripheral vascular disease is noted throughout the arteries of the left lower extremity. Only trace flow is seen throughout the arteries of the left lower extremity. 2. There is occlusion of the left profunda femoris artery and the left dorsalis pedis artery. CTA: 1. There is no evidence of pulmonary embolus in the main, lobar, or segmental pulmonary arteries. 2. There is no airspace consolidation or pleural effusion. Mild diffuse peribronchial thickening suggests reactive airway disease. Clinical correlation will be required. 3. Cardiomegaly with evidence of pulmonary artery hypertension. 4. Hepatic steatosis. 5. Findings are consistent with chronic pancreatitis. Lumbar Spine X ray: Posterior decompression and fusion from L2 through S1 with pedicle screws and rods. The hardware appears intact. No acute fractures. CT angio: ob abdomen/pelvis and legs: 1. Severe multilevel atherosclerotic narrowing of the bulk of the arterial structures of the abdomen pelvis and legs bilaterally. 2. 90% stenosis several proximal centimeters of the superior mesenteric artery. 3. 50-70% narrowing origin of the celiac axis. 4. High-grade and or near complete occlusion origin left superficial femoral artery and left profunda femoris artery. 5. 5070% stenosis origin right profunda artery. 6. Multifocal areas of critical and/or near critical stenotic change of the right as well as left superficial femoral arteries as well as popliteal arteries. 7. Multifocal areas of significant arterial occlusive change involving the runoff vessels of both lower legs with occlusion and/or near occlusion of the right and to a lesser extent left anterior tibial arteries Consultations: Vascular Surgery Cardiology Pending Studies/Follow-Up: Patient being transferred to [facility] for further management. Medication Reconciliation New Medications: Metoprolol Tartrate (Lopressor) 25 Mg Tab 12.5 MG PO QID for 30 Days, #60 TAB Nitroglycerin (Nitrostat) 0.4 Mg/1 Tab Subl 0.4 MG SL UD PRN for Chest Pain for 30 Days Continued Medications: Allopurinol (Zyloprim) 100 Mg Tab 100 MG PO QPM, TAB Aspirin (Aspirin Ec) 81 Mg Tab 81 MG PO QAM Atorvastatin (Lipitor) 10 Mg Tab 10 MG PO QPM, TAB B-Complex Vitamins (Vitamin B Complex) 1 Tab Tab 1 TAB PO QPM Bisacodyl (Dulcolax) 10 Mg Sup 1 SUPP DC DAILY PRN for Constipation, SUP Cholecalciferol (Vitamin D3) 1,000 Unit Tab 1000 MG PO QAM for 90 Days, TAB 3 Refills Citalopram Hydrobromide (Citalopram Hydrobromide) 20 Mg Tab 20 MG PO QAM for 90 Days, #90 TAB 3 Refills Fish Oil ([place]-3) 1 Ea Cap 1 CAP PO QAM, CAP Gabapentin (Neurontin) 300 Mg Cap 300 MG PO QAM, CAP Gabapentin (Neurontin) 300 Mg Cap 600 MG PO HS, CAP Hctz/Lisinopril (Lisinopril/Hctz 20/25 Mg) 1 Ea Tab 1 TAB PO QAM, TAB Hydromorphone Hcl (Dilaudid) 2 Mg Tab 2 MG PO Q4 PRN for SEVERE PAIN, TAB Magnesium Hydroxide (Milk of Magnesia) 30 Ml Susp 30 ML PO DAILY PRN for Constipation Nortriptyline (Pamelor) 25 Mg Cap 25 MG PO HS, CAP Ocuvite Preservision (Ocuvite Preservision) 1 Tab Tab 1 TAB PO BID, TAB Oxycodone/Acetaminophen 5MG/325MG (Percocet 5MG/325MG) Tab 1-2 TABLETS PO Q4 PRN for Pain, #90 TAB Discontinued Medications: Canagliflozin (Invokana) 300 Mg Tab 300 MG PO QAM Insulin Isophan/Regular (Novolin 70/30) Susp 56 UNITS SC QAM, BTL Insulin Isophan/Regular (Novolin 70/30) Susp 60 UNITS SC QPM, BTL Metformin Hcl (Glucophage Ext Rel) 1,000 Mg Tab 1000 MG PO BID, TAB Sodium Phosphate/Biphosphate (Fleet Enema) Francesca 1 EA DC DAILY PRN for Constipation, BTL Admission Information HPI (per Admitting provider): This is a 70 y/o male with PMHx of PAD, insulin-dependent DM 2, HTN, Dyslipidemia and other problems as outlined below who presents to the ED c/o LLE pain x 6 weeks. Pt reports that 6 weeks ago he woke up with pain in his LLE that he rates at a 9/10. The pain is worse with walking and better with rest. Sxs are assoc with LLE numbness and pallor. He reports that the RLE also bothers him from time to time but never to the same severity as the LLE. Pt had a back surgery by Dr. Todd last week and has been doing rehab at inpatient facility in [place]. He mentions that when he is doing the rehab exercises he has been getting so lightheaded that he feels that he could pass out. A LLE arterial US was done at the rehab facility today which showed no blood flow to LLE due to occlusion. Pt denies fever/chills, diaphoresis, chest pain, palpitations, SOB, wheezing, abd pain, N/V, bowel or bladder issues and LE edema. In the ED, pt is tachy, hypotensive and hypoxic to 89% on room air. Pt is now saturating well on 3L O2. Pt is afebrile with mild leukocytosis. HgB 12.1. Na+ 132. creat 1.1. Trop 3.4 and EKG + T wave inversion and anterior depression in inferior leads with Q wave and T wave abnormality in anterior leads. LLE Arterial US + occlusion of left profunda femoris artery and left dorsalis pedis artery. Pt will be admitted for further evaluation and treatment. Physical Exam (per Admitting): General Appearance: WD/WN, no apparent distress, + obese, + pertinent finding (Pt is laying comfortably in bed ) Head: normocephalic, atraumatic Eyes: normal inspection ENT: hearing grossly normal Neck: supple Respiratory/Chest: chest non-tender, lungs clear, normal breath sounds, no respiratory distress Cardiovascular: regular rate, rhythm, no edema, no murmur Abdomen/GI: normal bowel sounds, non tender, soft Back: + pertinent finding (dressing dry and intact over lumbar spine ) Extremities/Musculoskelatal: normal inspection, no pedal edema, + calf tenderness Neurologic/Psych: alert, normal mood/affect, oriented x 3 Skin: normal color, warm/dry Hospital Course LLE ARTERIAL OCCLUSION/SEVERE PAD Patient presented with 6 weeks LLE claudication and numbness; h/o PAD on ASA LLE arterial US + occlusion of left profunda femoris artery and left dorsalis pedis artery LLE Venous US: negative for DVT Continue IV heparin, ASA, statins Planned for CTA :Severe multivessel disease Vascular surgery, Dr. Varner on board Continue to monitor Patient is planned for transfer to [facility] for further management NSTEMI Risk Factors: obesity, DM 2, HTN, Dyslipidemia Patient denies any chest pain Troponin trending down EKG: T wave inversions inferior leads ECHO: Normal wall motion at the basal levels of all segments. Moderate to severe hypokinesis at the mid level and akinesis of all apical segments Continue IV heparin, ASA and statin. BB added cardiology, Dr. Rockwell on board Patient planned to be transfered to [facility] per recommendations from cardiology. ACUTE HYPOXIC RESPIRATORY FAILURE O2 88% on room air; now saturating well on 3L O2 at time of admission Denies any SOB, chest pain CTA: Negative for PE Currently saturating 96% on 2lNC HYPONATREMIA Na: 132 Continue IVF fluids Monitor sodium levels RECENT LUMBAR DECOMPRESSION/FUSION s/p surgery 04/[address] Thomas [facility] on board PT/OT INSULIN-DEPENDENT DM 2 Last A1C 7.0 Hold metformin and NovoLog Continue ISS Accu checks HYPOTHYROIDISM per records; not on hormone replacement recent TSH WNL DEPRESSION continue Celexa GOUT continue allopurinol HTN Well controlled Continue to monitor DYSLIPIDEMIA continue statin and fish oil DVT PROPHYLAXIS On heparin ggt CODE STATUS FULL CODE Total time spent on discharge = This includes examination of the patient, discharge planning, medication reconciliation, and communication with other providers. Discharge Instructions Discharge Instructions Admission Reason for Admission: Arterial Occlusion, Elevated Troponin Discharge Discharge Diagnosis / Problem: Severe PAD, NSTEMI Discharge Goals Goal(s): Decrease discomfort, Improve function Activity Recommendations Activity Level: Bedrest . Additional Information Patient informed of condition: Yes Advance Directives: Yes DNR: No Level of Care: Other ([facility]) Communicable Disease: No Prognosis: Other (Transfer to [place] for further care) Instructions / Follow-Up Instructions / Follow-Up Follow up with at [facility] Follow up with Family doctor after discharge From [place] Current Hospital Diet Patient's current hospital diet: Diabetes Type 2 Diet, AHA Diet (Heart Healthy) Discharge Diet Recommended Diet: AHA Diet (Heart Healthy) Pending Studies Studies pending at discharge: no Physician Orders On Transfer IV Therapy: IV Heparin IV NSS Additional Orders: Please refer to Paper Med Rec for accurate medications Laboratory Results Hemoglobin A1c Test 04/24/16 05:00 Range/Units Estimated Average Glucose 154 mg/dl Hemoglobin A1c 7.0 H 4.5-5.6 % Medical Emergencies . Who to Call and When: Medical Emergencies: If at any time you feel your situation is an emergency, please call 911 immediately. . Non-Emergent Contact Non-Emergency issues call your: Primary Care Provider, Sales Promotion Officer . . "Provider Documentation" section prepared by Albert Mobley. Core Measure Problem Core Measures: AMI AMI Core Measures Reason no ASA as I/P: Treatment provided - N/A Reason no ASA at D/C: Treatment provided - N/A Reason no statin as I/P: Treatment provided - N/A Reason no statin at D/C: Treatment provided - N/A
[2016-04-24] MEDS ORDERED: INSULIN ASPART 100 UNITS/ML 3 ML PEN SC SCH (21:00)
[2016-04-24] MEDS ORDERED: NORTRIPTYLINE HCL 25 MG CAP PO SCH (21:00)
[2016-04-24] MEDS ORDERED: VITAMIN B COMPLEX TAB PO SCH (21:00)
[2016-04-24] MEDS ORDERED: ALLOPURINOL 100 MG TAB PO SCH (21:00)
[2016-04-24] MEDS ORDERED: ATORVASTATIN 10 MG TAB PO SCH (21:00)
[2016-04-24] MEDS ORDERED: INSULIN GLARGINE SOLOSTAR 100 UNITS/ML 3 ML PEN SC SCH (21:00)
== END 2016-04-24 20:53 | disposition short-term general hospital (02) | DRG 280 ==
LOC: ENRESERVDT → ENRESERVTM → EDBD 18:57 → C.EDB 18:58 → C.2T 21:42
PROVIDERS: ADMIT Internal Medicine; ATTEND Internal Medicine
DX: I73.9 Peripheral vascular disease, unspecified (principal); I21.4 Non-ST elevation (NSTEMI) myocardial infarction; J96.01 Acute respiratory failure with hypoxia; K86.1 Other chronic pancreatitis; E87.1 Hypo-osmolality and hyponatremia; I27.2 Other secondary pulmonary hypertension; K76.0 Fatty (change of) liver, not elsewhere classified; Z79.84 Long term (current) use of oral hypoglycemic drugs; E66.9 Obesity, unspecified; I25.10 Atherosclerotic heart disease of native coronary artery without angina pectoris; E03.9 Hypothyroidism, unspecified; F32.9 Major depressive disorder, single episode, unspecified; M10.9 Gout, unspecified; I10 Essential (primary) hypertension; E11.9 Type 2 diabetes mellitus without complications; Z79.4 Long term (current) use of insulin; Z87.891 Personal history of nicotine dependence; E78.00 Pure hypercholesterolemia, unspecified; Z83.3 Family history of diabetes mellitus; Z82.49 Family history of ischemic heart disease and other diseases of the circulatory system